=== PATIENT | male | born 1965 | race Caucasian/White ===

== ENCOUNTER 2019-10-17 09:26 | Inpatient (IN) | payer BC, SELFPAY ==
[2019-10-17] VITALS (26 sets, daily range): BP systolic 95–132; BP diastolic 60–86; PULSE 83–99; RESP 21–51; TEMP 36.6–38.8; O2SAT 84–93; BMI 35.9
--- NOTE | 2019-10-17 09:31 | W.ED.URI ---
HPI - URI/Sore Throat General: Chief Complaint: Shortness of Breath/Dyspnea Stated Complaint: COVID + Time Seen by Provider: 10/17/19 09:29 History of Present Illness: HPI Narrative: 54-year-old male presents complaining of shortness of breath. He was seen last week at a local urgent care clinic had a positive antibody COVID test. Yesterday began to get more short of breath and was profoundly short of breath this morning. He has had diarrhea for about a week and a half now. He is also complaining of a fever moderately productive cough. He denies any hemoptysis. Associated symptoms: Deny abdominal pain, chills, chest pain, diarrhea, ear or mastoid pain, fever(s), nasal congestion, nausea or vomiting Review of Systems Const: Denies: fever(s), chills, body aches, change in appetite, fatigue or malaise ENMT: Denies: throat pain, ear or mastoid pain, nasal discharge or nasal congestion Card: Denies: chest pain, edema, dyspnea on exertion or orthopnea Resp: Reports: dyspnea, productive cough and non-productive cough GI: Denies: abdominal pain, nausea, vomiting, hematemesis, coffee ground emesis, diarrhea, constipation, bloating, hematochezia or melena : Denies: flank pain, dysuria, urinary frequency or urinary urgency Skin/Breast: Denies: rash or pruritus PFSH ED PFSH: Medical History Former smoker IBS (irritable bowel syndrome) Varicose vein of leg Surgical History History of appendectomy Family History Denies family history of Diabetes CAD (coronary artery disease) Hyperlipidemia Chronic kidney disease (CKD) Family history of premature coronary artery disease Lung disease Hypertension Social History Smoking and tobacco status: former smoker Alcohol intake: never Household members: family Housing: House Physical Exam Const: COMMON NORMALS: no acute distress GENERAL APPEARANCE: cooperative and comfortable ORIENTATION/CONSCIOUSNESS: Yes awake, Yes oriented to person, Yes oriented to place and Yes oriented to time HENMT: COMMON NORMALS: normocephalic, atraumatic, hearing grossly normal bilaterally, external ears normal, EAC's normal, TM's normal bilaterally, Normal nasal mucous membranes and turbinates present, moist oral mucous membranes and oropharynx normal HEAD & SCALP: normocephalic and atraumatic NOSE: Normal nasal mucous membranes and turbinates present EXTERNAL EAR: Yes external ears normal EXTERNAL AUDITORY CANAL: EAC's normal TYMPANIC MEMBRANE: TM's normal bilaterally Eye: COMMON NORMALS: Equal, round and reactive pupils present, EOMs intact bilaterally, conjunctivae normal and no scleral icterus CONJUNCTIVA: Yes conjunctivae normal PUPIL: Yes Equal, round and reactive pupils present Neck/C-Spine: COMMON NORMALS: full ROM, no lymphadenopathy, supple and no JVD Lymph: LYMPHATIC: no lymphadenopathy noted and no lymphedema noted Resp: EFFORT & INSPECTION: Yes uses accessory muscles AUSCULTATION: rhonchi throughout and wheezes scattered wheezes Cardio: COMMON NORMALS: no JVD, regular rate, regular rhythm and No murmurs present (Cardio) RATE: regular rate RHYTHM: regular rhythm GI: COMMON NORMALS: Soft to palpation and No hepatosplenomegaly present AUSCULTATION: Yes normoactive bowel sounds PALPATION: Yes Soft to palpation, No Tenderness to palpation present (GI), No Guarding due to palpation present (GI) and Yes No hepatosplenomegaly present Extremity: COMMON NORMALS: normal to inspection, capillary refill normal, no clubbing, cyanosis or edema, no calf tenderness and no pedal edema Neuro: SENSORIUM/ORIENTATION: Yes oriented to person, Yes oriented to place and Yes oriented to time Skin: COMMON NORMALS: no rashes or lesions noted GENERAL SKIN EXAM: no rashes or lesions noted Course Vital Signs: Vital signs: Vital Signs Temperature 98.4 F 10/18/19 19:29 Pulse Rate 80 10/18/19 19:29 Respiratory Rate 20 H 10/18/19 19:29 Blood Pressure 134/84 10/18/19 19:29 Pulse Oximetry 92 10/18/19 19:29 MDM - URI/Sore Throat MDM Narrative: Medical decision making narrative: Patient acutely Ill. Initially we had made plans to transfer to [facility] however a bed became available at our facility patient preferred to stay here we canceled the transfer and discussed Dr. Deshpande and will admit to our VICU. Lab Data: Labs: Lab Results 10/17/19 10/17/19 10/17/19 Range/Units 09:55 09:55 09:55 WBC 14.9 H (4.0-10.0) 10^3/ uL RBC 4.58 (4.1-5.3) 10^6/u L Hgb 13.9 (11.7-16.6) g/dL Hct 41.5 L (42.0-52.0) % MCV 90.6 (80-94) fL MCH 30.3 (28.0-34.0) pg MCHC 33.5 (30.0-36.0) g/dL RDW 13.2 (12.1-15.1) % Plt Count 376 (130-400) 10^3/c mm MPV 9.3 (7.4-10.4) fL Neut % (Auto) 86.3 % Lymph % (Auto) 8.9 % Preble % (Auto) 3.4 % Eos % (Auto) 0.1 % Baso % (Auto) 0.2 % Neut # (Auto) 12.87 H (1.8-7.7) 10^3/u L Lymph # (Auto) 1.3 (0.8-4.8) 10^3/u L Preble # (Auto) 0.5 (0.2-0.9) 10^3/u L Eos # (Auto) 0.0 (0.0-0.8) 10^3/u L Baso # (Auto) 0.0 (0.0-0.1) 10^3/u L Nucleated RBC % (a uto) 0 % Nucleated RBCs # 0.0 /100WBC PT 14.20 (12.1-14.9) SECO NDS INR 1.06 (0.8-1.2) APTT 28.0 (23.9-36.7) SECO NDS Fibrinogen 869 H (174-498) mg/dL D-Dimer 1.47 H (0-0.59) ug/mIFE U Specimen Type Sample Site ABG pH (7.35-7.45) ABG pCO2 (35-45) mmHg ABG pO2 (80.0-100.0) mmH g ABG HCO3 (22-26) mmol/L ABG Base Excess (-2.0-2.0) mmol/ L Manolo Test Hematocrit (42-52) % O2 Delivery Device O2 Liters/Min % FiO2 % Chief Inspector ID Sodium 138 (136-145) mmol/L Potassium 4.3 (3.5-5.1) mmol/L Chloride 101 (98-107) mmol/L Carbon Dioxide 26 (22-29) mmol/L Anion Gap 15.3 (5-19) BUN 14 (6-20) mg/dL Creatinine 1.2 (0.7-1.2) mg/dL GFR Calculation 63.3 L (90-130) mL/min Glucose 116 H (65-115) mg/dL Calculated Osmolal ity 283 L (285-295) mOsm/k g Lactic Acid (0.5-2.2) mmol/L Calcium 8.6 (8.5-10.5) mg/dL Iron (59-158) ug/dL TIBC mcg/dl % Saturation (20-50) % Unsat Iron Binding (112-347) ug/dL Ferritin 1737 H (30-400) ng/mL Total Bilirubin 0.6 (0.15-1.2) mg/dL AST 52 H (0-40) U/L ALT 50 H (0-41) U/L Alkaline Phosphata se 78 (40-130) IU/L Lactate Dehydrogen ase 550 H (135-225) U/L Creatine Kinase (39-308) U/L C-Reactive Protein 137.8 H (0.0-4.9) mg/L NT-Pro-B Natriuret Pep (0-125) pg/mL Total Protein 6.2 L (6.6-8.7) g/dL Albumin 3.4 L (3.5-5.2) g/dL Globulin 2.8 (1.3-4.6) g/dL Procalcitonin 0.18 (0-0.5) ng/mL TSH (0.27-4.20) uIU/ mL Influenza Type A A g (Negative) Influenza Type B A g (Negative) SARS-CoV-2 Ag (Rap id) (Negative) 10/17/19 10/17/19 10/17/19 Range/Units 09:55 09:55 09:55 WBC (4.0-10.0) 10^3/ uL RBC (4.1-5.3) 10^6/u L Hgb (11.7-16.6) g/dL Hct (42.0-52.0) % MCV (80-94) fL MCH (28.0-34.0) pg MCHC (30.0-36.0) g/dL RDW (12.1-15.1) % Plt Count (130-400) 10^3/c mm MPV (7.4-10.4) fL Neut % (Auto) % Lymph % (Auto) % Preble % (Auto) % Eos % (Auto) % Baso % (Auto) % Neut # (Auto) (1.8-7.7) 10^3/u L Lymph # (Auto) (0.8-4.8) 10^3/u L Preble # (Auto) (0.2-0.9) 10^3/u L Eos # (Auto) (0.0-0.8) 10^3/u L Baso # (Auto) (0.0-0.1) 10^3/u L Nucleated RBC % (a uto) % Nucleated RBCs # /100WBC PT (12.1-14.9) SECO NDS INR (0.8-1.2) APTT (23.9-36.7) SECO NDS Fibrinogen (174-498) mg/dL D-Dimer (0-0.59) ug/mIFE U Specimen Type Sample Site ABG pH (7.35-7.45) ABG pCO2 (35-45) mmHg ABG pO2 (80.0-100.0) mmH g ABG HCO3 (22-26) mmol/L ABG Base Excess (-2.0-2.0) mmol/ L Manolo Test Hematocrit (42-52) % O2 Delivery Device O2 Liters/Min % FiO2 % Chief Inspector ID Sodium (136-145) mmol/L Potassium (3.5-5.1) mmol/L Chloride (98-107) mmol/L Carbon Dioxide (22-29) mmol/L Anion Gap (5-19) BUN (6-20) mg/dL Creatinine (0.7-1.2) mg/dL GFR Calculation (90-130) mL/min Glucose (65-115) mg/dL Calculated Osmolal ity (285-295) mOsm/k g Lactic Acid 1.4 (0.5-2.2) mmol/L Calcium (8.5-10.5) mg/dL Iron 20 L (59-158) ug/dL TIBC 178 mcg/dl % Saturation 11.2 L (20-50) % Unsat Iron Binding 158 (112-347) ug/dL Ferritin (30-400) ng/mL Total Bilirubin (0.15-1.2) mg/dL AST (0-40) U/L ALT (0-41) U/L Alkaline Phosphata se (40-130) IU/L Lactate Dehydrogen ase (135-225) U/L Creatine Kinase 327 H* Cancelled (39-308) U/L C-Reactive Protein (0.0-4.9) mg/L NT-Pro-B Natriuret Pep 123 (0-125) pg/mL Total Protein (6.6-8.7) g/dL Albumin (3.5-5.2) g/dL Globulin (1.3-4.6) g/dL Procalcitonin 0.18 (0-0.5) ng/mL TSH 0.89 Cancelled (0.27-4.20) uIU/ mL Influenza Type A A g (Negative) Influenza Type B A g (Negative) SARS-CoV-2 Ag (Rap id) (Negative) 10/17/19 10/17/19 10/17/19 Range/Units 10:17 10:54 10:54 WBC (4.0-10.0) 10^3/ uL RBC (4.1-5.3) 10^6/u L Hgb (11.7-16.6) g/dL Hct (42.0-52.0) % MCV (80-94) fL MCH (28.0-34.0) pg MCHC (30.0-36.0) g/dL RDW (12.1-15.1) % Plt Count (130-400) 10^3/c mm MPV (7.4-10.4) fL Neut % (Auto) % Lymph % (Auto) % Preble % (Auto) % Eos % (Auto) % Baso % (Auto) % Neut # (Auto) (1.8-7.7) 10^3/u L Lymph # (Auto) (0.8-4.8) 10^3/u L Preble # (Auto) (0.2-0.9) 10^3/u L Eos # (Auto) (0.0-0.8) 10^3/u L Baso # (Auto) (0.0-0.1) 10^3/u L Nucleated RBC % (a uto) % Nucleated RBCs # /100WBC PT (12.1-14.9) SECO NDS INR (0.8-1.2) APTT (23.9-36.7) SECO NDS Fibrinogen (174-498) mg/dL D-Dimer (0-0.59) ug/mIFE U Specimen Type Not specified Sample Site Radial, right ABG pH 7.48 H (7.35-7.45) ABG pCO2 31.5 L (35-45) mmHg ABG pO2 64.7 L (80.0-100.0) mmH g ABG HCO3 23.6 (22-26) mmol/L ABG Base Excess 1.1 (-2.0-2.0) mmol/ L Manolo Test Pos Hematocrit 51.0 (42-52) % O2 Delivery Device Nc O2 Liters/Min 8.0 % FiO2 56.0 % Chief Inspector ID glc Sodium (136-145) mmol/L Potassium (3.5-5.1) mmol/L Chloride (98-107) mmol/L Carbon Dioxide (22-29) mmol/L Anion Gap (5-19) BUN (6-20) mg/dL Creatinine (0.7-1.2) mg/dL GFR Calculation (90-130) mL/min Glucose (65-115) mg/dL Calculated Osmolal ity (285-295) mOsm/k g Lactic Acid (0.5-2.2) mmol/L Calcium (8.5-10.5) mg/dL Iron (59-158) ug/dL TIBC mcg/dl % Saturation (20-50) % Unsat Iron Binding (112-347) ug/dL Ferritin (30-400) ng/mL Total Bilirubin (0.15-1.2) mg/dL AST (0-40) U/L ALT (0-41) U/L Alkaline Phosphata se (40-130) IU/L Lactate Dehydrogen ase (135-225) U/L Creatine Kinase (39-308) U/L C-Reactive Protein (0.0-4.9) mg/L NT-Pro-B Natriuret Pep (0-125) pg/mL Total Protein (6.6-8.7) g/dL Albumin (3.5-5.2) g/dL Globulin (1.3-4.6) g/dL Procalcitonin (0-0.5) ng/mL TSH (0.27-4.20) uIU/ mL Influenza Type A A g Negative (Negative) Influenza Type B A g Negative (Negative) SARS-CoV-2 Ag (Rap id) Positive H (Negative) Discharge Plan Discharge Patient Disposition: Admitted As Inpatient Admit Provider: Devendra Brownlee Clinical Impression: Pneumonia due to COVID-19 virus Condition: Fair Interventions: ED Discharge Assessment Last Done: 10/17/19 18:03 ED Charges Last Done: 10/17/19 18:03 Discharge Date/Time: 10/17/19 18:04 Coding Level of Care Code ED Supervisor Record Press for Tonya Carias
--- NOTE | 2019-10-17 09:58 | XRR_ITS ---
PROCEDURE INFORMATION: Exam: XR Chest, 1 View Exam date and time: 10/17/2019 10:13 AM Age: 54 years old Clinical indication: Patient HX: Dyspnea/hypoxia. Covid + TECHNIQUE: Imaging protocol: XR of the chest Views: 1 view. COMPARISON: CR Chest 2 views* [id number] 12/27/2017 4:42 PM FINDINGS: Lungs: Interstitial prominence, subcentimeter nodules, and mild airspace disease. Pleural space: No pleural effusion. Heart/Mediastinum: No cardiomegaly. Bones/joints: Scoliosis and degenerative change. XR/XR chest 1V portable [id number] IMPRESSION: Interstitial prominence, subcentimeter nodules, and mild airspace disease.
[2019-10-17 10:10] LABS: Basophils % 0.2 %; Eosinophils % 0.1 %; Hematocrit 41.5 % (42.0-52.0); Hemoglobin 13.9 g/dL (11.7-16.6); Lymphocytes # 1.3 10^3/uL (0.8-4.8); Lymphocytes % 8.9 %; Mean Corpuscular HGB Conc 33.5 g/dL (30.0-36.0); Mean Corpuscular Hemoglobin 30.3 pg (28.0-34.0); Mean Corpuscular Volume 90.6 fL (80-94); Mean Platelet Volume 9.3 fL (7.4-10.4); Monocytes # 0.5 10^3/uL (0.2-0.9); Monocytes % 3.4 %; Neutrophils # 12.87 10^3/uL (1.8-7.7); Neutrophils % 86.3 %; Nucleated Red Blood Cells % 0 %; Platelet Count 376 10^3/cmm (130-400); Red Blood Count 4.58 10^6/uL (4.1-5.3); Red Cell Distribution Width 13.2 % (12.1-15.1); White Blood Count 14.9 10^3/uL (4.0-10.0)
[2019-10-17 10:26] LABS: Alanine Aminotransferase 50 U/L (0-41); Albumin Level 3.4 g/dL (3.5-5.2); Alkaline Phosphatase 78 IU/L (40-130); Anion Gap 15.3 (5-19); Aspartate Amino Transferase 52 U/L (0-40); Blood Urea Nitrogen 14 mg/dL (6-20); Calcium 8.6 mg/dL (8.5-10.5); Carbon Dioxide 26 mmol/L (22-29); Chloride 101 mmol/L (98-107); Globulin 2.8 g/dL (1.3-4.6); Glomerular Filtration Rate 63.3 mL/min (90-130); Glucose 116 mg/dL (65-115); Lactate Dehydrogenase 550 U/L (135-225); Osmolality Calculated 283 mOsm/kg (285-295); Potassium 4.3 mmol/L (3.5-5.1); Sodium 138 mmol/L (136-145); Total Bilirubin 0.6 mg/dL (0.15-1.2); Total Protein 6.2 g/dL (6.6-8.7)
[2019-10-17 10:27] LABS: INR 1.06 (0.8-1.2); Lactic Sepsis W/Reflex 1.4 mmol/L (0.5-2.2)
[2019-10-17 10:28] LABS: Fibrinogen 869 mg/dL (174-498)
[2019-10-17 10:29] LABS: ABG PCO2 31.5 mmHg (35-45); ABG PH Result 7.48 (7.35-7.45); Base Excess ABG 1.1 mmol/L (-2.0-2.0); Blood Gas Allen Test Pos; Blood Gas Operator Identificat glc; Blood Gas Sample Site Radial, right; HCO3 ABG 23.6 mmol/L (22-26); Oxygen Device NC; PO2 ABG 64.7 mmHg (80.0-100.0)
[2019-10-17 10:31] LABS: D Dimer 1.47 ug/mIFEU (0-0.59)
--- NOTE | 2019-10-17 10:55 | PC.NURSE ---
report received from ct [facility] care.
[2019-10-17] MEDS: dexamethasone 4 mg/mL INJ 6 MG IVP (11:00)
[2019-10-17] MEDS: enoxaparin 120 mg/0.8 mL Syringe 110 MG SUBCUT (11:01)
[2019-10-17 11:24] LABS: Influenza A by IFA Negative (Negative); Influenza B by IFA Negative (Negative); SARS Covid-2 Antigen Positive (Negative)
[2019-10-17 11:36] LABS: Procalcitonin 0.18 ng/mL (0-0.5)
[2019-10-17 11:45] LABS: Blood Gas Sample Type Not specified
[2019-10-17 11:47] LABS: C Reactive Protein 137.8 mg/L (0.0-4.9)
[2019-10-17 12:01] LABS: Ferritin 1737 ng/mL (30-400)
--- NOTE | 2019-10-17 13:00 | PC.NURSE ---
informed dr. chaparro of o2 sat of 88% on 6L via nc and rr at 34rr/min verbalized understanding no further orders.
[2019-10-17] MEDS: ondansetron 2 mg/ML SDV 2 mL 4 MG IVP (14:25)
--- NOTE | 2019-10-17 15:21 | PM.HP ---
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 At that time he went to his primary care physician who gave him treatment for upper respiratory infection. Later in the week he developed mild hematuria for which he went to local urgent care who started him treatment with cephalexin for UTI and tested him for COVID-19. Patient's COVID-19 results came back positive on Tuesday, October 08. Today October 16 patient started feeling worse when he got up today morning. He was having difficulty in breathing and was not able to catch his breath. Decided to come to the ER. He has been having cough with mild expectoration but all the symptoms have been getting worse. He has been having 2 days of occasional diarrhea along with nausea but no vomiting. Bowel movements are usually next, not foul-smelling or bloodstained. Patient states he thinks he had the exposure to COVID-19 at the [employer] where 3 other people were tested positive earlier in the week. The ER his blood work showed a white count of 14.9, hemoglobin 13.9, fibrinogen of 869, d-dimer 1.47, ABGs with a PCO2 of 31.5, PO2 of 64.7, BMP within normal limits with ferritin of 1737, LDH of 550, CRP of 137. X-ray was done which is suggestive of bilateral interstitial prominence with mild airspace disease. In the ER patient was saturating 84% on room air and required up to 6 L nasal cannula to keep saturation over 91 with a fever of 101.9 Fahrenheit. Review of Systems General: Reports: 10 or more systems reviewed and unremarkable except in HPI and below Const: Reports: fever(s), chills, body aches and malaise; Denies: change in appetite, change in weight, night sweats, diaphoresis, change in sleep pattern, daytime sleepiness or snoring Eyes: Denies: change in vision, blurry vision, photophobia, eye discomfort or eye discharge ENMT: Reports: throat pain; Denies: enlarged tonsils, hoarseness, mouth pain, oral sores, dry mouth, tinnitus, nasal congestion or post nasal drip Card: Denies: chest pain, palpitations, irregular heart rhythm, edema, swelling of feet/ankles, lightheadedness, syncope, pre-syncope, dyspnea on exertion, orthopnea, leg pain with exertion or acrocyanosis Resp: Reports: dyspnea and productive cough; Denies: non-productive cough, wheezing, stridor, pain on inspiration, change in phlegm color, hemoptysis or chest congestion GI: Reports: nausea and diarrhea; Denies: abdominal pain, vomiting, hematemesis, coffee ground emesis, dysphagia, heartburn, constipation, bloating, GI cramping, change in bowel habits, pain on defecation, hematochezia or melena : Reports: urinary urgency and hematuria; Denies: flank pain, difficulty urinating, dysuria, urinary frequency, urinary hesitancy, urinary dribbling, difficulty starting urination, change in urine stream or nocturia Musc: Denies: neck pain, back pain, extremity pain, joint pain, joint swelling, joint redness, joint stiffness or limited range of motion Neuro: Reports: headache(s); Denies: numbness in extremities, weakness in extremities, sensory changes, lack of coordination, difficulty walking, frequent falls, dizziness, vertigo, confusion, Slurred speech present, difficulty communicating thoughts or seizure-like activity Psych: Denies: anxiety, depression, mood swings, panic attacks, hopelessness or irritability Endo: Denies: polyuria, polydipsia, tired all the time, cold intolerance, excessive sweating, flushing or heat intolerance Grey/Lymph: Denies: easy bruising or easy bleeding All/Imm: Denies: tongue swelling, facial swelling or acute wheezing Medications/Allergies Home Medications Medication Instructions Recorded Confirmed Last Taken Type Fish Oil 1 cap PO DAILY 10/17/19 10/17/19 Unknown History albuterol sulfate [Ventolin HFA] 2 puff INHALATION QID PRN 10/17/19 10/17/19 Unknown History calcium carb-D3-mag ox-zinc ox 1 tab PO TID 10/17/19 10/17/19 Unknown History [Maximino Mag Zinc Plus D3] cefdinir 300 mg PO BID 10/17/19 10/17/19 10/16/19 23:00 History cephalexin 500 mg PO QID 10/17/19 10/17/19 Unknown History mcqybgyohhu-fyo-tgcjjnthk-vitC 1 cap PO BID 10/17/19 10/17/19 Unknown History [Glucosamine Complex-MSM] ibuprofen 600 mg PO PRN 10/17/19 10/17/19 10/17/19 08:15 History promethazine 25 mg PO QID PRN 10/17/19 10/17/19 10/16/19 History Allergies Allergy/AdvReac Type Severity Reaction Status Date / Time aluminum Allergy Mild rash Verified 10/17/19 15:34 PFSH Acute PFSH: Medical History (Updated 10/17/19 @ 15:36 by Devendra Brownlee MD) Former smoker IBS (irritable bowel syndrome) Varicose vein of leg Surgical History (Updated 10/17/19 @ 15:36 by Devendra Brownlee MD) History of appendectomy Family History (Updated 10/17/19 @ 15:41 by Devendra Brownlee MD) Denies family history of Diabetes CAD (coronary artery disease) Hyperlipidemia Chronic kidney disease (CKD) Family history of premature coronary artery disease Lung disease Hypertension Social History (Updated 10/17/19 @ 15:40 by Devendra Brownlee MD) Smoking and tobacco status: former smoker Alcohol intake: never Substance/Drug Use: never Household members: family Housing: House Vitals/I&O/Wt Last Vital Signs Temp 101.9 F H 10/17/19 09:50 Pulse 92 10/17/19 15:00 Resp 28 H 10/17/19 15:00 BP 117/79 10/17/19 15:00 Pulse Ox 91 10/17/19 15:00 Weight last 48 hrs Weight 113.398 kg Physical Exam Narrative: EXAM NARRATIVE: General: No acute distress, AO x3 HEENT: PERRLA, pupils bilaterally equal and reactive Chest: Normal vesicular breath sounds, no added sounds, equal good air entry bilaterally CVS: S1-S2 regular, no murmurs, no tachycardia, no gallops, no rubs Abdomen: Soft, nontender, no organomegaly, bowel sounds present Neuro: No focal deficits, no facial deformity, AO x3, power 5/5 in all limbs Data : 10/17/19 09:55 10/17/19 09:55 Micro: Microbiology 10/17/19 11:03 Gram Stain - Final Sputum - Expectorated Sputum 10/17/19 10:00 Blood Culture - Preliminary Blood SPECIMEN COLLECTED 10/17/19 09:55 Blood Culture - Preliminary Blood SPECIMEN COLLECTED A&P Assessment and plan (1) Pneumonia due to COVID-19 virus: Status: Acute (2) Acute respiratory failure with hypoxia: Status: Acute (3) UTI (urinary tract infection): Status: Acute Additional A&P Information Acute hypoxic respiratory failure due to covered pneumonia: At least moderate to severe COVID-19 as patient is requiring 6 L oxygen supplementation. Oxygen supplementation to keep oxygen levels above 90%. Antiviral treatment with Remdesevir for 5 days. Dexamethasone 6 mg IV daily. Advair, Spiriva. Vitamin C and zinc. We will continue to monitor inflammatory markers like ferritin, LDH, CRP, d-dimer, fibrinogen levels. Cannot rule out bacterial infection. Check pro procalcitonin, proBNP, sputum culture, blood culture. For now start patient on levofloxacin. Check CTA to rule out PE. D-dimer elevated. For now start patient on full dose Lovenox. Tylenol for pain and fever, incentive spirometry, flutter valve. Insulin sliding scale as patient will be on dexamethasone. Nystatin swish and swallow. UTI: Some concerns for UTI at urgent care when patient was seen earlier in the week. Patient has been on oral antibiotics. Check urinalysis. For now levofloxacin will help with UTI as well. Patient does not give any history of resistant bacteria in the past. Diarrhea: Most likely viral in etiology. Patient has been antibiotics so we will have to rule out C. difficile. Check stool studies. IV fluids and normal saline at 75 cc/h for now. CODE STATUS: Full code. Famotidine for PUD prophylaxis. Regular diet. Discussed in detail regarding the treatment options including antiviral treatment, plasma treatment, possible requirement of intubation if respiratory failure worsens. Both patient and his are agreeable to the treatment. Also discussed regarding potential adverse effects with the treatment. Also discussed that in case if the respiratory failure worsens patient might require intubation and plasma therapy which unfortunately is not available at [facility] and at that point patient might need to be transferred to a higher center. They both agree with the same as well. Attestations Medical Necessity Statement*: At least for 2 midnights because of acute hypoxic respiratory failure because of COVID-19 pneumonia Critical Care Time: Critical Care Time (min): 80 Coding Level of Care Code Acute Battalion Chief for [facility] Fwd Diagnoses Pneumonia due to COVID-19 virus U07.1; J12.89 Acute respiratory failure with hypoxia J96.01 UTI (urinary tract infection) N39.0
--- NOTE | 2019-10-17 15:25 | CTR_ITS ---
PROCEDURE INFORMATION: Exam: CT Angiography Chest With Contrast Exam date and time: 10/17/2019 3:26 PM Age: 54 years old Clinical indication: Shortness of breath; Additional info: Covid, hypoxic faliure, R/O pe TECHNIQUE: Imaging protocol: Computed tomographic angiography of the chest with intravenous contrast. 3D rendering (Not supervised by radiologist): MIP and/or 3D reconstructed images were created by the technologist. Radiation optimization: All CT scans at this facility use at least one of these dose optimization techniques: automated exposure control; mA and/or kV adjustment per patient size (includes targeted exams where dose is matched to clinical indication); or iterative reconstruction. Contrast material: OMNI 350; Contrast volume: 79 ml; Contrast route: INTRAVENOUS (IV); COMPARISON: CR XR chest 1V portable [id number] 10/17/2019 10:22 AM RADIATION DOSE METRICS: Total DLP (mGy-cm): 596.78 FINDINGS: Pulmonary arteries: There are mildly prominent prevascular lymph nodes measuring up to 11 x 18 mm.There is no evidence of filling defects within the pulmonary arterial circulation to suggest pulmonary embolism. Aorta: Unremarkable. No aortic aneurysm. No aortic dissection. Lungs: There are extensive ground-glass pulmonary opacities present on all segments of the lungs but with relative sparing of the right upper lobe and posterior left lower lobe. These are nonspecific but are consistent with the clinical history of COVID-19. There is calcified granuloma in the left lower lobe. Pleural space: Unremarkable. No pneumothorax. No pleural effusion. Heart: Unremarkable. No cardiomegaly. No pericardial effusion. Lymph nodes: There are calcified left hilar lymph nodes in keeping with old granulomatous disease. Bones/joints: There is focal scoliosis of the thoracic spine concave towards the left due to a raad vertebrae on the right side at the T6 level. Soft tissues: Unremarkable. CT/CT angio chest PE protcl [id number] IMPRESSION: 1. No evidence of pulmonary embolism 2. Small bilateral pleural effusions. 3. Extensive bilateral ground-glass opacities.Imaging features can be seen with COVID-19 pneumonia, though are nonspecific and can occur with a variety of infectious and noninfectious processes. REFERENCES: Neil Cat et al., Radiological Society of [place] Expert Consensus Statement on Reporting Chest CT Findings Related to COVID-19. Endorsed by the Society of Thoracic Radiology, the [place] [employer], and RSNA. Published May 09, 2019. Radiation Dose CTDIVOL = (mGy): DLP = 596.78 (mGy-cm)
[2019-10-17 16:21] LABS: NT Pro B Type Natriuretic Pept 123 pg/mL (0-125); Procalcitonin 0.18 ng/mL (0-0.5); Thyroid Stimulating Hormone 0.89 uIU/mL (0.27-4.20)
[2019-10-17 16:39] LABS: Iron 20 ug/dL (59-158); Percent Saturation 11.2 % (20-50); Total Iron Binding Capacity 178 mcg/dl; Unsaturated Iron Binding 158 ug/dL (112-347)
[2019-10-17 16:41] LABS: Creatine Phosphokinase 327 U/L (39-308)
[2019-10-17] MEDS: iohexol 350 mg/mL 100 mL Btl IV (16:49)
[2019-10-17] MEDS: famotidine 20 mg/2 mL INJ IVP (17:17)
[2019-10-17] MEDS: levoFLOXacin 500 mg Tablet PO (17:17)
[2019-10-17] MEDS: sodium chloride 0.9% 1,000 ML 50 ML IV (18:27)
[2019-10-17] MEDS: enoxaparin 120 mg/0.8 mL Syringe 113 MG SUBCUT (18:28)
[2019-10-17] MEDS: ascorbic acid 500 mg Tablet PO (18:28)
[2019-10-17] MEDS: zinc gluconate 50 mg Tablet PO (18:29)
[2019-10-17 19:57] LABS: Glucose Point of Care 171 mg/dL (70-110)
[2019-10-17 19:57] LABS: Glucose Point of Care 129 mg/dL (70-110)
[2019-10-17] MEDS: benzonatate 100 mg Capsule PO (21:01)
[2019-10-18] VITALS (39 sets, daily range): BP systolic 106–149; BP diastolic 49–92; PULSE 75–107; RESP 11–47; TEMP 36.6–37.2; O2SAT 88–95
[2019-10-18 00:30] LABS: Bilirubin Urine Neg (NEGATIVE); Blood Urine 2+ (Negative); Glucose Urine UA Norm (Normal); Ketones Urine Negative (Negative); Leukocyte Esterase Urine Negative (Negative); Mucus Urine TRACE; Nitrate Urine Negative (Negative); Protein Urine Neg (Negative); Specific Gravity, Urine 1.015 (1.005-1.030); Urine Appearance Clear (CLEAR); Urine Color Yellow (Yellow); Urobilinogen Urine Norm (Negative); pH Urine 5 (5-7)
[2019-10-18] MEDS: ipratropium-albuterol 3 mL Neb INHALATION ×3 (01:00→14:40)
--- NOTE | 2019-10-18 01:07 | PC.NURSE ---
Patient up to bathroom while on oxygen, increased O2 to 15L/min. Patient remained in mid-80% while tachypneic. Requested heated high flow nasal cannula from RT, notified Dr. Mcdonough of events. Dr. Mcdonough advised to prone patient, if possible. Patient willing to lay on side but not to prone at this time. HHFNC applied by RT, 60% FIO2, 50L/min. Patient states he feels better, O2 sats increased.
[2019-10-18] MEDS: famotidine 20 mg/2 mL INJ IVP ×2 (04:29→15:08)
--- NOTE | 2019-10-18 06:00 | XR_ITS ---
WS: [id number] Portable AP upright chest, 10/18/2019 Clinical Data: covid Comparison: Portable chest, 10/17/2019 Findings: Bilateral opacities remain unchanged. No nodules, masses or effusions are seen. The heart i s normal. No pneumothorax is present. There is a dextroscoliosis of the midthoracic spine. Monitor le ads are on the chest wall. XR/XR chest 1V portable [id number] Impression: No change in bilateral pulmonary opacities.
[2019-10-18] MEDS: enoxaparin 120 mg/0.8 mL Syringe 113 MG SUBCUT ×2 (06:12→18:04)
[2019-10-18] MEDS: levoFLOXacin 500 mg Tablet PO (06:14)
[2019-10-18 07:04] LABS: Basophils % 0.1 %; Hematocrit 39.5 % (42.0-52.0); Lymphocytes # 1.4 10^3/uL (0.8-4.8); Lymphocytes % 10.3 %; Mean Corpuscular HGB Conc 32.9 g/dL (30.0-36.0); Mean Corpuscular Hemoglobin 30.2 pg (28.0-34.0); Mean Corpuscular Volume 91.9 fL (80-94); Mean Platelet Volume 9.9 fL (7.4-10.4); Monocytes # 0.7 10^3/uL (0.2-0.9); Monocytes % 5.2 %; Neutrophils # 11.14 10^3/uL (1.8-7.7); Neutrophils % 82.7 %; Nucleated Red Blood Cells % 0.1 %; Platelet Count 445 10^3/cmm (130-400); Red Cell Distribution Width 13.3 % (12.1-15.1); White Blood Count 13.5 10^3/uL (4.0-10.0)
[2019-10-18 07:12] LABS: Alanine Aminotransferase 106 U/L (0-41); Albumin Level 3.3 g/dL (3.5-5.2); Alkaline Phosphatase 72 IU/L (40-130); Anion Gap 16.1 (5-19); Aspartate Amino Transferase 84 U/L (0-40); Blood Urea Nitrogen 19 mg/dL (6-20); C Reactive Protein 123.8 mg/L (0.0-4.9); Calcium 7.9 mg/dL (8.5-10.5); Carbon Dioxide 24 mmol/L (22-29); Chloride 102 mmol/L (98-107); Creatine Phosphokinase 251 U/L (39-308); Globulin 3.2 g/dL (1.3-4.6); Glomerular Filtration Rate 88.3 mL/min (90-130); Glucose 125 mg/dL (65-115); Magnesium 2.6 mg/dL (1.7-2.3); Osmolality Calculated 284 mOsm/kg (285-295); Potassium 4.1 mmol/L (3.5-5.1); Sodium 138 mmol/L (136-145); Total Bilirubin 0.4 mg/dL (0.15-1.2); Total Protein 6.5 g/dL (6.6-8.7)
[2019-10-18 07:19] LABS: Procalcitonin 0.14 ng/mL (0-0.5)
[2019-10-18 07:26] LABS: Estmated Average Glucose 117; Hemoglobin A1C 5.7 % (4.0-6.0)
[2019-10-18 07:30] LABS: Lactate Dehydrogenase 549 U/L (135-225)
[2019-10-18 07:43] LABS: Ferritin 1848 ng/mL (30-400)
[2019-10-18 07:48] LABS: Fibrinogen 832 mg/dL (174-498)
[2019-10-18 07:51] LABS: D Dimer 0.98 ug/mIFEU (0-0.59)
[2019-10-18] MEDS: ascorbic acid 500 mg Tablet PO ×2 (08:57→18:04)
[2019-10-18] MEDS: dexamethasone 10 mg/mL INJ 6 MG IVP (08:57)
[2019-10-18] MEDS: benzonatate 100 mg Capsule PO ×2 (08:58→15:08)
[2019-10-18] MEDS: zinc gluconate 50 mg Tablet PO (08:58)
[2019-10-18 11:38] LABS: Glucose Point of Care 131 mg/dL (70-110)
[2019-10-18] MEDS: FUROsemide 10 mg/mL SDV 2mL 20 MG IVP (11:59)
--- NOTE | 2019-10-18 13:31 | PM.PN ---
Subjective Subjective: Interval history: Overnight patient states he has been comfortable. He denies of any nausea, vomiting. States his abdominal pain is better. Still complaining of cough. Having mild chest pain on deep cough. Not bringing up as much phlegm as before. On examination patient is on 60% 40 L high flow nasal cannula maintaining saturation over 90% at rest which goes up to 93% while talking. His mean arterial pressures and heart rate has remained stable. He states his energy levels are little better than yesterday. He is having his meals. States his sense of taste and smell are intact. Denies of having any headache. Patient has been getting up and going to the restroom multiple times. He states is normal for him because of his history of IBS. Vitals/I&O/Wt Last Vital Signs Temp 98.0 F 10/18/19 11:53 Pulse 80 10/18/19 11:30 Resp 22 H 10/18/19 11:30 BP 116/68 10/18/19 11:30 Pulse Ox 91 10/18/19 11:30 10/17/19 10/18/19 10/18/19 22:59 06:59 14:59 Intake Total 1050 / 1050 Output Total 300 / 300 275 / 275 Balance -300 / -300 775 / 775 Weight last 48 hrs Weight 113.398 kg Weight 113.398 kg Physical Exam Narrative: EXAM NARRATIVE: General: No acute distress, AO x3 HEENT: PERRLA, pupils bilaterally equal and reactive Chest: Normal vesicular breath sounds, no added sounds, equal good air entry bilaterally CVS: S1-S2 regular, no murmurs, no tachycardia, no gallops, no rubs Abdomen: Soft, nontender, no organomegaly, bowel sounds present Neuro: No focal deficits, no facial deformity, AO x3, power 5/5 in all limbs Data : 10/18/19 05:00 10/18/19 05:00 Micro: Microbiology 10/17/19 11:03 Gram Stain - Final Sputum - Expectorated Sputum Sputum Culture - Preliminary 10/17/19 18:46 MRSA Culture - Final Nose 10/17/19 10:00 Blood Culture - Preliminary Blood NEGATIVE TO DATE 10/17/19 09:55 Blood Culture - Preliminary Blood NEGATIVE TO DATE 10/17/19 23:25 Legionella Urinary Antigen - Final Urine,Clean Catch A&P Assessment and plan (1) ARDS (adult respiratory distress syndrome): Status: Acute (2) Pneumonia due to COVID-19 virus: Status: Acute (3) Acute respiratory failure with hypoxia: Status: Acute (4) IBS (irritable bowel syndrome): Status: Acute Additional A&P Information ARDS/acute hypoxic respiratory failure due to covered pneumonia: At least moderate to severe COVID-19. Patient's oxygen requirements have been going up. At present he is on high flow. CT images and chest x-ray done today morning reviewed. Patient is in ARDS. We will try to keep patient as negative as possible. Stop IV fluids and will give patient 20 mg of IV Lasix as patient is Lasix na?ve. Strict input output charting. Antiviral treatment with Remdesevir. Day 2/ today. Dexamethasone 6 mg IV daily. Advair, Spiriva. DuoNeb's as needed. Vitamin C and zinc. We will continue to monitor inflammatory markers like ferritin, LDH, CRP, d-dimer, fibrinogen levels. Cannot rule out bacterial infection. Legionella, MRSA negative. Sputum culture results awaited. Continue with levofloxacin. Day 2. Even the CTA PE negative for thrombosis but given the fact that patient's oxygen requirement has been going up and hemoglobin is stable we will continue with full dose of Lovenox. Most likely patient will require 2 weeks of anticoagulation on discharge. Tylenol for pain and fever, incentive spirometry, flutter valve. Insulin sliding scale as patient will be on dexamethasone. Nystatin swish and swallow. UTI: Symptoms as an outpatient. Urinalysis negative for leuk esterase or nitrite. Only positive for 2+ blood. Patient does not give history of kidney stones in the past. Most likely patient would require abdominal imaging to rule out nephrolithiasis as an outpatient. Diarrhea: Most likely because of chronic history of IBS versus viral in etiology. Patient has been antibiotics so we will have to rule out C. difficile. Check stool studies. CODE STATUS: Full code. Famotidine for PUD prophylaxis. Regular diet. Discussed in detail regarding the treatment options including antiviral treatment, plasma treatment, possible requirement of intubation if respiratory failure worsens. Both patient and his are agreeable to the treatment. Also discussed regarding potential adverse effects with the treatment. Also discussed that in case if the respiratory failure worsens patient might require intubation and plasma therapy which unfortunately is not available at [facility] and at that point patient might need to be transferred to a higher center. They both agree with the same as well. Severely guarded prognosis Attestations Medical Necessity Statement*: ARDS, COVID-19 pneumonia Critical Care Time: Critical Care Time (min): 80 Coding Level of Care Code Acute Vocational Rehabilitation Counselor for g Fwd Diagnoses ARDS (adult respiratory distress syndrome) J80 Pneumonia due to COVID-19 virus U07.1; J12.89 Acute respiratory failure with hypoxia J96.01 IBS (irritable bowel syndrome) K58.9
--- NOTE | 2019-10-18 16:27 | PM.TDS ---
Transfer Summary Providers Date of Admission: 10/17/19 15:42 Date of Discharge: 10/18/19 Attending Provider at Admission: Devendra Brownlee MD Attending Provider at Transfer: Devendra Brownlee MD Anticipated Date of Transfer: Anticipated date of transfer: 10/18/19 Receiving Facility & Provider: Receiving Provider: [Dr. 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 At that time he went to his primary care physician who gave him treatment for upper respiratory infection. Later in the week he developed mild hematuria for which he went to local urgent care who started him treatment with cephalexin for UTI and tested him for COVID-19. Patient's COVID-19 results came back positive on Tuesday, October 08. Today October 16 patient started feeling worse when he got up today morning. He was having difficulty in breathing and was not able to catch his breath. Decided to come to the ER. He has been having cough with mild expectoration but all the symptoms have been getting worse. He has been having 2 days of occasional diarrhea along with nausea but no vomiting. Bowel movements are usually next, not foul-smelling or bloodstained. Patient states he thinks he had the exposure to COVID-19 at the [employer]ab[employer]ism where 3 other people were tested positive earlier in the week. The ER his blood work showed a white count of 14.9, hemoglobin 13.9, fibrinogen of 869, d-dimer 1.47, ABGs with a PCO2 of 31.5, PO2 of 64.7, BMP within normal limits with ferritin of 1737, LDH of 550, CRP of 137. X-ray was done which is suggestive of bilateral interstitial prominence with mild airspace disease. In the ER patient was saturating 84% on room air and required up to 6 L nasal cannula to keep saturation over 91 with a fever of 101.9 Fahrenheit. On admission patient was requiring up to 6 L nasal cannula oxygen supplementation to keep saturation over 90%. Overnight patient's oxygen saturation continued to get worse and morning he was requiring 40 L 60% oxygen supplementation to keep saturation over 90% at rest. On ambulation it would go down to high 70s to low 80s. Patient remained hemodynamically stable. Patient has received 2 doses of Remdesevir along with dexamethasone, vitamin C, zinc, Advair and Spiriva. Because patient's oxygen requirements are going up possible transfer to a higher center which has capability of pruning in bed, Flolan, possible plasma therapy, possible ECMO requirement if needed are there. The treatment options were discussed with patient and patient's Ms. Moy in detail. They both agreed for a possible transfer. Dr. Hernandez from [facility] has graciously accepted the patient to be transferred to [facility]. He has been transferred in hemodynamically stable condition. Physical Exam Narrative: EXAM NARRATIVE: General: No acute distress, AO x3 HEENT: PERRLA, pupils bilaterally equal and reactive Chest: Normal vesicular breath sounds, no added sounds, equal good air entry bilaterally CVS: S1-S2 regular, no murmurs, no tachycardia, no gallops, no rubs Abdomen: Soft, nontender, no organomegaly, bowel sounds present Neuro: No focal deficits, no facial deformity, AO x3, power 5/5 in all limbs TS Data Data Completed and Pending: Completed Studies During Hospitalization Category Date Time Status CT angio chest PE protcl [id number] Urge nt Cat Scan 10/17/19 15:25 Completed XR chest 1V garrett ble [id number] QAM Exams 10/18/19 06:00 Completed XR chest 1V garrett ble [id number] Stat Exams 10/17/19 09:58 Completed Pending at discharge Category Date Time Status Blood Culture Sta t Lab 10/17/19 10:00 Results C Reactive Protei n AM LABS Lab 10/19/19 04:00 Ordered C Reactive Protei n AM LABS Lab 10/20/19 04:00 Ordered Clostridioides Di fficile PCR Routin e Lab 10/17/19 15:46 Ordered Complete Blood Co unt w/Auto AM LABS Lab 10/19/19 04:00 Ordered Complete Blood Co unt w/Auto AM LABS Lab 10/20/19 04:00 Ordered Comprehensive Met abolic Panel AM LA BS Lab 10/19/19 04:00 Ordered Comprehensive Met abolic Panel AM LA BS Lab 10/20/19 04:00 Ordered D Dimer AM LABS Lab 10/19/19 04:00 Ordered D Dimer AM LABS Lab 10/20/19 04:00 Ordered Enteric Bacterial Panel by PCR Rout ine Lab 10/17/19 15:46 Ordered Enteric Parasite Panel by PCR Routi ne Lab 10/17/19 15:46 Ordered Ferritin AM LABS Lab 10/19/19 04:00 Ordered Ferritin AM LABS Lab 10/20/19 04:00 Ordered Fibrinogen AM LAB S Lab 10/19/19 04:00 Ordered Fibrinogen AM LAB S Lab 10/20/19 04:00 Ordered Immunochemical Fe geovanna OCB Routine Lab 10/17/19 15:46 Ordered Lactate Dehydroge nase AM LABS Lab 10/19/19 04:00 Ordered Lactate Dehydroge nase AM LABS Lab 10/20/19 04:00 Ordered Lactoferrin Routi ne Lab 10/17/19 15:46 Ordered Magnesium AM LABS Lab 10/19/19 04:00 Ordered Magnesium AM LABS Lab 10/20/19 04:00 Ordered Sputum Culture an d Gram Stain Stat Lab 10/17/19 11:03 Results Labs from last 24 hours 10/18/19 10/18/19 10/18/19 11:35 05:00 05:00 WBC RBC Hgb Hct MCV MCH MCHC RDW Plt Count MPV Neut % (Auto) Lymph % (Auto) [place] % (Auto) Eos % (Auto) Baso % (Auto) Neut # (Auto) Lymph # (Auto) [place] # (Auto) Eos # (Auto) Baso # (Auto) Nucleated RBC % (a uto) Nucleated RBCs # Fibrinogen 832 H D-Dimer 0.98 H Sodium Potassium Chloride Carbon Dioxide Anion Gap BUN Creatinine GFR Calculation Glucose POC Glucose 131 Estimat Average Gl ucose Hemoglobin A1c Calculated Osmolal ity Calcium Magnesium Iron TIBC % Saturation Unsat Iron Binding Ferritin 1848 H Total Bilirubin AST ALT Alkaline Phosphata se Lactate Dehydrogen ase 549 H Creatine Kinase C-Reactive Protein NT-Pro-B Natriuret Pep Total Protein Albumin Globulin Procalcitonin 0.14 TSH Urine Color Urine Appearance Urine pH Ur Specific Gravit y Urine Protein Urine Glucose (UA) Urine Ketones Urine Blood Urine Nitrate Urine Bilirubin Urine Urobilinogen Ur Leukocyte Abena ase Urine RBC Urine WBC Ur Squamous Epith Cells Amorphous Sediment Urine Bacteria Urine Mucus 10/18/19 10/18/19 10/18/19 05:00 05:00 05:00 WBC 13.5 H RBC 4.30 Hgb 13.0 Hct 39.5 L MCV 91.9 MCH 30.2 MCHC 32.9 RDW 13.3 Plt Count 445 H MPV 9.9 Neut % (Auto) 82.7 Lymph % (Auto) 10.3 [place]olls % (Auto) 5.2 Eos % (Auto) 0.0 Baso % (Auto) 0.1 Neut # (Auto) 11.14 H Lymph # (Auto) 1.4 [place]s # (Auto) 0.7 Eos # (Auto) 0.0 Baso # (Auto) 0.0 Nucleated RBC % (a uto) 0.1 Nucleated RBCs # 0.0 Fibrinogen D-Dimer Sodium 138 Potassium 4.1 Chloride 102 Carbon Dioxide 24 Anion Gap 16.1 BUN 19 Creatinine 0.9 GFR Calculation 88.3 L Glucose 125 H POC Glucose Estimat Average Gl ucose 117 Hemoglobin A1c 5.7 Calculated Osmolal ity 284 L Calcium 7.9 L Magnesium 2.6 H Iron TIBC % Saturation Unsat Iron Binding Ferritin Total Bilirubin 0.4 AST 84 H ALT 106 H Alkaline Phosphata se 72 Lactate Dehydrogen ase Creatine Kinase 251 C-Reactive Protein 123.8 H NT-Pro-B Natriuret Pep Total Protein 6.5 L Albumin 3.3 L Globulin 3.2 Procalcitonin TSH Urine Color Urine Appearance Urine pH Ur Specific Gravit y Urine Protein Urine Glucose (UA) Urine Ketones Urine Blood Urine Nitrate Urine Bilirubin Urine Urobilinogen Ur Leukocyte Abena ase Urine RBC Urine WBC Ur Squamous Epith Cells Amorphous Sediment Urine Bacteria Urine Mucus 10/17/19 10/17/19 10/17/19 23:25 19:47 18:38 WBC RBC Hgb Hct MCV MCH MCHC RDW Plt Count MPV Neut % (Auto) Lymph % (Auto) [place] % (Auto) Eos % (Auto) Baso % (Auto) Neut # (Auto) Lymph # (Auto) [place] # (Auto) Eos # (Auto) Baso # (Auto) Nucleated RBC % (a uto) Nucleated RBCs # Fibrinogen D-Dimer Sodium Potassium Chloride Carbon Dioxide Anion Gap BUN Creatinine GFR Calculation Glucose POC Glucose 171 129 Estimat Average Gl ucose Hemoglobin A1c Calculated Osmolal ity Calcium Magnesium Iron TIBC % Saturation Unsat Iron Binding Ferritin Total Bilirubin AST ALT Alkaline Phosphata se Lactate Dehydrogen ase Creatine Kinase C-Reactive Protein NT-Pro-B Natriuret Pep Total Protein Albumin Globulin Procalcitonin TSH Urine Color Yellow Urine Appearance Clear Urine pH 5 Ur Specific Gravit y 1.015 Urine Protein Neg Urine Glucose (UA) Norm Urine Ketones Negative Urine Blood 2+ H Urine Nitrate Negative Urine Bilirubin Neg Urine Urobilinogen Norm Ur Leukocyte Abena ase Negative Urine RBC None Urine WBC None Ur Squamous Epith Cells None Amorphous Sediment Not Reportable Urine Bacteria None Urine Mucus Trace 10/17/19 09:55 WBC RBC Hgb Hct MCV MCH MCHC RDW Plt Count MPV Neut % (Auto) Lymph % (Auto) [place] % (Auto) Eos % (Auto) Baso % (Auto) Neut # (Auto) Lymph # (Auto) [place] # (Auto) Eos # (Auto) Baso # (Auto) Nucleated RBC % (a uto) Nucleated RBCs # Fibrinogen D-Dimer Sodium Potassium Chloride Carbon Dioxide Anion Gap BUN Creatinine GFR Calculation Glucose POC Glucose Estimat Average Gl ucose Hemoglobin A1c Calculated Osmolal ity Calcium Magnesium Iron 20 L TIBC 178 % Saturation 11.2 L Unsat Iron Binding 158 Ferritin Total Bilirubin AST ALT Alkaline Phosphata se Lactate Dehydrogen ase Creatine Kinase 327 H* C-Reactive Protein NT-Pro-B Natriuret Pep 123 Total Protein Albumin Globulin Procalcitonin 0.18 TSH 0.89 Urine Color Urine Appearance Urine pH Ur Specific Gravit y Urine Protein Urine Glucose (UA) Urine Ketones Urine Blood Urine Nitrate Urine Bilirubin Urine Urobilinogen Ur Leukocyte Abena ase Urine RBC Urine WBC Ur Squamous Epith Cells Amorphous Sediment Urine Bacteria Urine Mucus Vitals: Last Vital Signs Temp 98.0 F 10/18/19 11:53 Pulse 88 10/18/19 14:38 Resp 22 H 10/18/19 14:38 BP 116/68 10/18/19 11:30 Pulse Ox 93 10/18/19 14:38 TS Medications Medications Home Medications Fish Oil 1 cap PO DAILY 10/17/19 [History Confirmed 10/17/19] albuterol sulfate [Ventolin HFA] 2 puff INHALATION QID PRN 10/17/19 [History Confirmed 10/17/19] calcium carb-D3-mag ox-zinc ox [Geovanna Mag Zinc Plus D3] 1 tab PO TID 10/17/19 [History Confirmed 10/17/19] cefdinir 300 mg PO BID 10/17/19 [History Confirmed 10/17/19] cephalexin 500 mg PO QID 10/17/19 [History Confirmed 10/17/19] [id number]-rgnldqzka-vitC [Glucosamine Complex-MSM] 1 cap PO BID 10/17/19 [History Confirmed 10/17/19] ibuprofen 600 mg PO PRN 10/17/19 [History Confirmed 10/17/19] promethazine 25 mg PO QID PRN 10/17/19 [History Confirmed 10/17/19] Active Medications Acetaminophen (Tylenol) 650 mg PO Q6H PRN PRN Reason: Mild/Mod Pain Or Temp >/= 101 Albuterol/Ipratropium (Duoneb) 3 ml INHALATION Q4H.RESPIRATORY PRN PRN Reason: SHORTNESS OF BREATH Last Admin: 10/18/19 14:40 Dose: 3 ml Documented by: Ascorbic Acid (Vitamin C) 500 mg PO BID [facility] Last Admin: 10/18/19 08:57 Dose: 500 mg Documented by: Benzonatate (Tessalon Pearls) 100 mg PO TID [facility] Last Admin: 10/18/19 15:08 Dose: 100 mg Documented by: Bisacodyl (Dulcolax) 10 mg PO DAILY PRN PRN Reason: CONSTIPATION Calcium Carbonate (Tums) 1,000 mg PO Q4H PRN PRN Reason: DYSPEPSI Dexamethasone (Decadron) 6 mg IVP DAILY [facility] Last Admin: 10/18/19 08:57 Dose: 6 mg Documented by: Dextrose (D50w) 25 ml IVP ONCE PRN; Protocol PRN Reason: hypoglycemia protocol Dextrose (D50w) 50 ml IVP PRN PRN; Protocol PRN Reason: hypoglycemia protocol Enoxaparin Sodium (Lovenox) 113 mg SUBCUT Q12H [facility] Last Admin: 10/18/19 06:12 Dose: 113 mg Documented by: Famotidine (Pepcid Inj) 20 mg IVP Q12H [facility] Last Admin: 10/18/19 15:08 Dose: 20 mg Documented by: Glucagon (Glucagen) 1 mg IM ONCE PRN; Protocol PRN Reason: Adult Acute Hypoglycemia Prot. remdesivir (EUA) 100 mg/ (Sodium Chloride) 100 mls @ 100 mls/hr IV Q24H [facility] Stop: 10/21/19 10:59 Last Admin: 10/18/19 09:02 Dose: 100 mls/hr Documented by: Dextrose (D5w) 500 mls @ 100 mls/hr IV ONCE PRN; Protocol PRN Reason: Adult Acute Hypoglycemia Prot Insulin Aspart (Novolog) 0 unit SUBCUT WM&BEDTIME [facility]; Protocol Last Admin: 10/18/19 11:59 Dose: Not Given Documented by: Levofloxacin (Levaquin) 500 mg PO DAILY@0600 [facility]; Protocol Last Admin: 10/18/19 06:14 Dose: 500 mg Documented by: Ondansetron HCl (Zofran) 4 mg IVP Q8H PRN PRN Reason: vomiting, or N/V if npo Prochlorperazine (Compazine) 5 mg PO Q8H PRN PRN Reason: N/V Fluticasone/Salmeterol (Advair Diskus 250-50) 1 puff INHALATION 0900,2099 [facility] Tiotropium [place] (Spiriva) 18 mcg INHALATION 2100 [facility] Zinc Gluconate (Zinc Gluconate) 50 mg PO DAILY [facility] Last Admin: 10/18/19 08:58 Dose: 50 mg Documented by: Discharge Plan Discharge Patient Disposition: Xfer Other Condition: Fair Prescriptions: No Action cephalexin 500 mg capsule 500 mg PO QID RF: 0 promethazine 25 mg tablet 25 mg PO QID PRN (Reason: Nausea) RF: 0 ibuprofen 200 mg Tablet 600 mg PO PRN RF: 0 cefdinir 300 mg capsule 300 mg PO BID RF: 0 Glucosamine Complex-MSM Capsule 1 cap PO BID RF: 0 Geovanna Mag Zinc Plus D3 333 mg-133 unit -133 mg-5 mg Tablet 1 tab PO TID RF: 0 Fish Oil 1 cap PO DAILY RF: 0 Ventolin HFA 90 mcg/actuation HFA aerosol inhaler 2 puff INHALATION QID PRN (Reason: Shortness Of Breath) RF: 0 Discharge Orders: Transfer Out of Facility (Order); Ordered 10/18/19 Ordered By: Devendra Brownlee Transfer Attestations Time Spent in Transfer Care*: critical care time Critical Care Time (min): 60 Status at Transfer: Cognitive status at transfer: cognitively intact, Behavioral status at transfer: cooperative, Functional status at transfer: independent ambulation Overall status at transfer: patient is not back to baseline Quality Metrics Clinical Quality Measures: During this hospital stay, did patient experience: None Coding Level of Care Code Acute Grid Operator for g Fwd Diagnoses ARDS (adult respiratory distress syndrome) J80 Pneumonia due to COVID-19 virus U07.1; J12.89 Acute respiratory failure with hypoxia J96.01 IBS (irritable bowel syndrome) K58.9
[2019-10-18 16:40] LABS: Glucose Point of Care 131 mg/dL (70-110)
--- NOTE | 2019-10-18 17:31 | PC.NURSE ---
educated patient on IS usage. also educated on self-proning.
--- NOTE | 2019-10-18 18:23 | PC.NURSE ---
report called to latrice uribe at [facility]. contacted ems for transportation. patients delia contacted.
--- NOTE | 2019-10-18 19:25 | PC.NURSE ---
Patient being transferred via EMS to [facility] for higher level of care.
== END 2019-10-18 19:25 | disposition short-term general hospital (02) | DRG 177 ==
LOC: ER 17:04 → ICU 17:50
PROVIDERS: Admitting Provider Student in an Organized Health Care Education/Training Program; Emergency Provider Family Medicine; Visit Provider Student in an Organized Health Care Education/Training Program
DX: U07.1 COVID-19 (principal); J12.89 Other viral pneumonia; J96.01 Acute respiratory failure with hypoxia; N39.0 Urinary tract infection, site not specified; Z87.891 Personal history of nicotine dependence; K58.0 Irritable bowel syndrome with diarrhea; I83.90 Asymptomatic varicose veins of unspecified lower extremity
CPT/HCPCS: 12345; 36415; 36416; 36600; 71045; 71275; 80053; 81001; 82550; 82728; 82803; 82962; 83036; 83540; 83550; 83605; 83615; 83735; 83880; 84145; 84443; 85025; 85378; 85384; 85610; 85730; 86140; 87040; 87070; 87205; 87426; 87449; 87641; 87804; 94640; 96372; 96375; 99284; J1100; J1650; J1815; J1940; J2405; J3490; J7030; Q9967

== ENCOUNTER → 2021-11-03 10:05 | Outpatient (BNVA) | payer BC, SELFPAY | PROVIDERS: Visit Provider Student in an Organized Health Care Education/Training Program | DX: M17.12 Unilateral primary osteoarthritis, left knee (principal) | CPT/HCPCS: 73560; 73565 ==

== ENCOUNTER 2022-02-18 06:17 | Outpatient (CLI) | payer BC, SELFPAY ==
--- NOTE | 2022-02-18 06:30 | CT_ITS ---
WS: [id number] CT LEFT KNEE, NONCONTRAST [facility] TECHNIQUE: Noncontrast CT of the LEFT knee to include the LEFT hip and ankle. [facility] protocol CLINICAL INFORMATION: Left knee DJD COMPARISON: None. DLP: 957.[address] scans at [facility] use at least one of these dose optimization techniques: automated e xposure control; mA and/or kV adjustment per patient size (includes targeted exams where dose is matc hed to clinical indication); or iterative reconstruction. FINDINGS: Advanced tricompartmental arthritis LEFT knee worse in the medial joint compartment. Rtob-xe-tcud art iculation. Hypertrophic patella. Hypertrophic changes along the joint line. Mild degenerative arthritis sacroiliac joints. A few sigmoid diverticuli. Tiny suprapatellar effusion . CT/CT knee LT [facility] IMPRESSION: Images obtained for preoperative purposes.
== END 2022-02-18 06:18 | disposition home or self-care (01) ==
LOC: RAD 06:18
PROVIDERS: PCP Family Medicine; Visit Provider Student in an Organized Health Care Education/Training Program
DX: M17.12 Unilateral primary osteoarthritis, left knee (principal)
CPT/HCPCS: 73700

== ENCOUNTER 2022-02-24 16:40 | Observation (INO) | payer BC, SELFPAY ==
[2022-02-24] VITALS (17 sets, daily range): BP systolic 132–163; BP diastolic 77–108; PULSE 68–95; RESP 14–20; TEMP 36.2–36.6; O2SAT 94–98; BMI 37.3
[2022-02-24] MEDS: ketorolac 30 mg/mL INJ IVP (10:35)
[2022-02-24] MEDS: acetaminophen 1,000 MG/100 ML PIGGYBACK 400 MG IV ×2 (10:35→22:10)
[2022-02-24] MEDS: lactated ringers 500 ML IV (10:36)
[2022-02-24] MEDS: sodium chloride 0.9% 1,000 ML 30 ML IV (10:36)
--- NOTE | 2022-02-24 13:26 | P.ANESUD_ITS ---
Pre-Anesthetic Update Pre-Anesthetic Assessment: Date of Surgery/Procedure: 02/24/22 Preop Pinky gnosis: Left knee degenerative joint disease, failed conservative treatment Proposed Procedure: Operation Date: 02/24/22 11:45 Proposed Procedures p left knee Total knee Zechariah Arthroplasty 15569 ,M17.12(Left) - Edgar Arana, DO Any changes to Pre-Anesthetic Assessment?: No Last Intake: Intake Last Liquid Date 02/23/22 Last Liquid Time 23:45 Last Solid Date 02/23/22 Last Solid Time 20:00 Labs Last 48hrs: Blood Bank 02/24/22 10:28 Blood Type O Positive Rho(D) Type Positive Antibody Screen Negative Vitals: Temperature 97.5 F L 02/24/22 10:13 Pulse Rate 68 02/24/22 10:13 Respiratory Rate 18 02/24/22 10:13 Blood Pressure 161/108 02/24/22 10:13 Blood Pressure Shweta n 125 02/24/22 10:13 Pulse Oximetry 97 02/24/22 10:13 Oxygen Delivery Me thod 02/24/22 10:13 Exam: Pre-Anes Outpt Exam: alert, oriented x 3, clear to auscultation bilaterally and regular rate & rhythm Cardiac Studies: No Data to Display
--- NOTE | 2022-02-24 13:26 | ANES.PROC ---
Anesthesia Procedures Procedure/Date: 02/24/22 Nerve Block ^: Nerve Block 1: Main Anesthesia: spinal anesthesia block Time Out Performed: Yes Consent: requested by attending/covering physician, from patient, from other, risks and benefits reviewed and patient agrees to proceed Nerve block location: adductor canal (L) Anesthesia monitors applied: pulse oximetry, EKG, BP cuff and oxygen Nerve block position: supine Anesthetic Used: ropivicaine 0.5% and with decadron (4 mg) Amount of anesthesia used (mL): 30 Ultrasound used to: recognize landmarks and visualize and ID femerol nerve Nerve Stimulator Used?: No Interscalene/Femoral BLK: 4 stimuplex 21 g needle used for position and inplane approach, visualize local anesthetic spread and no vascular puncture identified Patient Tolerated Procedure: well and no complications Complications: none
--- NOTE | 2022-02-24 13:38 | PM.HP ---
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 Patient's failed all conservative treatment options. Through shared decision making in the office we talked about the risk benefits complication alternatives to surgical nonsurgical treatment options. At this point time with [id number] arthritis feel in his best interest would be a left total knee arthroplasty. Through shared decision-making he agrees to proceed with surgical intervention. We detailed out the risk which include but are not limited to make it better, make it worse, blood clot, heart attack, stroke, on the table, infection, arthrofibrosis. Understanding these risks he agrees to proceed with surgical intervention all questions answered at this time. No changes HPI since last office visit. Review of Systems General: Reports: 10 or more systems reviewed and unremarkable except in HPI and below Medications/Allergies Home Medications Medication Instructions Recorded Confirmed Last Taken Type albuterol sulfate 90 mcg/actuation 2 puff inhalation PRN PRN 10/17/19 02/24/22 2 Months Ago History aerosol inhaler (Ventolin HFA) Shortness Of Breath ~12/25/21 calcium carb 333 mg-vit D3 133 1 tab PO TID 10/17/19 02/24/22 02/23/22 History unit-mag ox 133 mg-zinc oxide 5 mg tab (Maximino Mag Zinc Plus D3) [id number]-sef-dgxyzsncm-vitC 1 cap PO BID 10/17/19 02/24/22 02/23/22 History capsule (Glucosamine Complex-MSM capsule) ibuprofen 200 mg tablet 600 mg PO PRN 10/17/19 02/24/22 02/22/22 History Allergies Allergy/AdvReac Type Severity Reaction Status Date / Time aluminum Allergy Mild rash Verified 02/24/22 10:06 PFSH Acute PFSH: Medical History Former smoker IBS (irritable bowel syndrome) Left knee DJD Varicose vein of leg Surgical History History of appendectomy Family History Denies family history of Diabetes CAD (coronary artery disease) Hyperlipidemia Chronic kidney disease (CKD) Family history of premature coronary artery disease Lung disease Hypertension Social History Smoking and tobacco status: former smoker Alcohol intake: never Household members: family Housing: House Vitals/I&O/Wt Last Vital Signs Temp 97.5 F L 02/24/22 10:13 Pulse 68 02/24/22 10:13 Resp 18 02/24/22 10:13 BP 161/108 02/24/22 10:13 Pulse Ox 97 02/24/22 10:13 O2 Del Method 02/24/22 10:13 02/23/22 02/24/22 02/24/22 22:59 06:59 14:59 Intake Total 600 / 600 Balance 600 / 600 Weight last 48 hrs Weight 260 lb Physical Exam Narrative: Constitutional?alert oriented able to follow commands HEENT?normocephalic atraumatic Respiratory?no acute respiratory distress Cardio?distal pulses palpable MSK?examination of the left lower extremity negative logroll. Normal hip range of motion. Decreased range of motion of the left knee secondary to pain. Severe tenderness to palpation over the medial compartment of the knee. Small 3 to 5 degree flexion contracture noted. Patient is able to wiggle toes plantarflex and dorsiflex ankle. Distal pulses palpable. Sensation intact light touch to the SPN/DPN/tibial/saphenous/sural nerve distribution. A&P Assessment and plan (1) Left knee DJD: Plan Patient is here today for surgical intervention of his left knee of the left total knee arthroplasty. He has been seen evaluated by his primary care physician and cleared for surgical intervention. He has been seen evaluated by Anesthesia Department and cleared for surgery. He is received a preoperative CT scan with plan for left total knee Zechariah arthroplasty. Patient has no current issues or change in his HPI or medical record since our last office visit. Consent was signed and reviewed with patient. All questions answered. Understands risk benefits complication alternatives surgery and agrees to proceed. All questions answered. Attestations Medical Necessity Statement*: Left total knee arthroplasty Coding Level of Care Code Acute Facilities Operator for Chg Fwd Diagnoses Left knee DJD M17.12 Time Spent (min) 45
[2022-02-24] MEDS: ceFAZolin 2,000 MG in sodium chloride 0.9% (plus) 50 ML 100 MG IV ×2 (13:43→21:23)
[2022-02-24] MEDS: tranexamic acid 1,000 mg/10mL SDV 1000 MG IV (14:20)
[2022-02-24] MEDS: ketorolac 30 mg/mL INJ XX (15:22)
[2022-02-24] MEDS: tranexamic acid 1,000 mg/10mL SDV 1000 MG XX (15:22)
[2022-02-24] MEDS: EPINEPHrine 1 mg/mL INJ XX (15:22)
--- NOTE | 2022-02-24 17:01 | XRR_ITS ---
PROCEDURE INFORMATION: Exam: XR Left Knee Exam date and time: 02/24/2022 5:01 PM Age: 56 years old Clinical indication: Other: Total knee post op; Prior surgery; Surgery date: Post-operative (0-2 days); Additional info: L tka postop TECHNIQUE: Imaging protocol: Radiologic exam of the Left knee. Views: 1 or 2 views. COMPARISON: No relevant prior studies available. FINDINGS: Bones/joints: Postoperative changes of left-sided total knee replacement. The hardware is intact. The alignment is near anatomic. No evidence of fracture. Soft tissues: There is soft tissue gas present, related to surgery. XR/XR knee LT 1-2V [id number] IMPRESSION: Status post left total knee replacement. No evidence of complication.
--- NOTE | 2022-02-24 17:10 | P.OP_ITS ---
Brief Operative Note Date of procedure: 02/24/22 Pre-op diagnosis: Left knee degenerative joint disease, failed conservative tr eatment Post-op diagnosis: same Procedure Done: Left total knee arthroplasty?Zechariah robotic assisted Surgeon: Edgar Arana Estimated blood loss (mL): 10 Complications: None Post-op Plan: Patient taken to PACU in stable condition recovering well. Patient received spinal anesthesia and beginning to wear off. Patient be admitted to the floor. Internal medicine consulted for medical management and assistance. We will be weightbearing as tolerated to the left lower extremity as well as encourage range of motion ice and elevate as needed. Postoperative TXA, antibiotics as well as pain medication and DVT prophylaxis. Orthopedics will continue to follow along with patient. PT/OT Condition: stable Disposition: floor Coding Level of Care Code Acute Applied Anthropologist for Tonya Carias
--- NOTE | 2022-02-24 17:11 | PM.PACU ---
PACU note Narrative: Patient taken to PACU in stable condition recovering well. Spinal anesthesia beginning to wear off still unable to thoroughly assess motor and sensory. Will reassess in the a.m. Distal pulses are palpable. Toes are warm well perfused compartment soft compressible. Dressing on in place clean dry and intact. Exam: awake Disposition: admitted
--- NOTE | 2022-02-24 17:12 | P.OP_ITS ---
Operative Report Date of procedure: February 24, 2022 Pre-op diagnosis: Preop Diagnosis Left knee degenerative joint disease, failed conservative treatment Post-op diagnosis: Same Procedure done: Left total knee arthroplasty-robotic assisted Zechariah Implants: Darryn triathlon femoral cruciate retaining implant size 4 Size 5 triathlon tibial baseplate Size 11 mm polyethylene Asymmetric patella 32 mm Surgeon: Edgar Arana DO Estimated blood loss: 10mL 82min IV fluids: 1100mL Urine output: 500mL Complications: NOne Findings: See op note Condition: stable Disposition: floor Brief History: Patient seen evaluated in the outpatient setting and worked up for preoperative diagnosis of severe degenerative joint disease of the left knee. He is failed conservative treatment. At this point we had discussion about treatment options and through shared decision making he elects to proceed with a left total knee arthroplasty. He understands the risk benefits complications alternatives to surgical nonsurgical treatment options. Risks of surgery he agrees proceed. He has been seen by his primary care physician who is cleared him for surgery as well as anesthesia department. Preoperative holding area consent reviewed and signed and agreeable to surgical intervention. All questions answered at this time. Procedure: Patient seen evaluated in the preoperative holding area.? Consent was reviewed with patient and signed.? The correct extremity was then marked.? Patient seen evaluated by the anesthesia and preoperative team once cleared for surgery was taken back to the operative suite.? Patient taken back to the operative suite.? He underwent spinal anesthesia per the anesthesia department.? He transported the operative table.? All bony prominences well-padded patient was appropriately secured to the bed.? This point time the left lower extremity was then prepped and draped in standard orthopedic fashion.? Patient received appropriate preoperative antibiotics.? Final timeout performed. Esmarch tourniquet was used exsanguinate the left lower extremity.? Tourniquet was insufflated to 250 mmHg. A standard anterior incision was made over midline of the knee.? Sharp scalpel excision through skin and subcutaneous tissue full-thickness skin flaps were made.? Fascia was elevated off of the extensor retinaculum was stable with parapatellar arthrotomy was then made.? The performed standard sequential releases with a medial release was patient had a varus deformity.? Next the the patella was then stopped and the knee was then flexed.? Armboard was placed superiorly around the anterior aspect of the femur this was freed avulsed synovium and I subsequently then placed by 2 femur pins to establish my femur arrays for the Zechariah robot.? These were then placed bicortically and by femur rate was then appropriately secured with appropriate visualization.? Next attention was turned towards the tibial rays.? These were then drilled sequentially bicortically in parallel fashion.? I then placed my guide as well as my tibial array on in place.? This was appropriately secured and had excellent visualization with the Zechariah robot.? Next the tibial checkpoint as well as femur checkpoint were then placed.? At this point time I then subsequently established my head center as well as my medial lateral malleoli as well as my checkpoints.? Next utilizing standard Zechariah technology I then mapped out the appropriate points and confirmation points around the femur as well as the tibia in standard fashion.? Once this was then done I then removed all osteophytes in preparation for dynamic testing.? All osteophytes were removed as well as I removed the ACL and left the PCL intact.? At this point time the knee was brought into full extension and we performed our standard evaluation of our gap balancing stressing her ligaments and extension as well as flexion appropriate adjustments were made to have appropriate gap balancing in both flexion and extension.? This plan for final counts.? We get a preoperative plan evaluating our implants which was a size 4 femur and a size 5 tibia.? Next we brought in the Zechariah robot and sequentially made our femur cuts. Collaterals were protected throughout the case.? All excess bony cuts were then removed.? Finally we made our tibial cut.? Once this was done a standard PCL retractor was then placed into this position I excised the medial and lateral meniscus.? The tibial cut was then subsequently removed all excess bony debris was removed.? I then utilized a lamina profiling machine set up operator tool and remove the posterior osteophytes.? At this point time sized the tibia and confirmed this was a size 5.? I utilized our blunt probe to establish rotation of tibial implant.? Once this was done I then placed my tibia size 5 trial in appropriate position and then subsequently placed tibial pins to hold this into place placed a size 9 mm poly as well as a size 4 femur which was appropriately impacted in place knee was then subsequently brought into extension.? Slight hyperextension was then subsequently noted.? I increased my policy thickness to 11 mm and this was stable with varus valgus stress.? Bringing up into flexion this did feel slightly tight.? Then utilizing electrocautery performed a standard PCL release as we were using ultracongruent tibial poly.? Once this was done I had excellent balance gaps in flexion and extension with varus and valgus stresses.? At this point I was satisfied with these implants these were then verified and opened on the back table size 5 tibia size 4 femur size 11 mm polythickness.? We did confirm appropriate gap balancing and stresses as well as alignment utilizing Zechariah and were satisfied with this plan.? At this point time with my trials in place I then towel clip the patella everted this made appropriate measurements subsequently utilizing freehand technique performed by patellar resurfacing this was confirmed to be appropriate resection and subsequently sized to be a 32 mm.? My drill peg guides were then clamped and appropriate position and appropriate position in the patella for appropriate tracking and parallel with the joint.? Pegs were drilled trial implant was placed and the knee was then subsequently ranged and found to have excellent patellar tracking.? At this point time all of our trial implants were removed.? The wound bed bone was thoroughly dried and prepped for cementation.? Cement was mixed on the back table.? Once cement was ready this was then covered onto the tibia and the tibial baseplate was then impacted and all excess cement was removed.? Next the polyethylene was then impacted into place and the tibial baseplate.? Next cement was placed onto the femur as well as under the femur implants and impacted in to place and all excess cement was extruded.? Knee was taken into full extension? to clear all excess cement was removed.? Warm saline was placed over the joint.? I then towel clip patella and cemented the patella into place.? This was all clamped and the cement was allowed to cure.? Thorough irrigation performed with pulse lavage.? I then placed my periarticular injection while the cement was curing.? Once cured the knee was taken through range of motion and had excellent stability with varus valgus stress and stable in flexion.? Tourniquet was then deflated.? Once tourniquet was deflated hemostasis satisfactory with electrocautery.? Next I then subsequently closed the capsule with a running strata fix suture.? He was then taken through range of motion 30 times.? Next the skin was then closed in layered fashion utilizing running strata fix sutures for deep subcu as well as superficial and a Monocryl strata fix suture was used for the skin.? He was closed in flexion and Prineo glue was then placed over the incision this allowed to set.? Incision was covered with ABDs soft roll and Phil wrap.? Patient was then awakened from anesthesia and taken to PACU in stable condition. Disposition: Patient taken to PACU in stable condition will be admitted to the floor for pain control PT/OT weight-bear as tolerated left lower extremity dressing changes as needed, DVT prophylaxis.? Patient will be seen today by the internal medicine team for medical management.? Patient will follow up with the office in 2 weeks.? Patient understands agrees with current plan.? All questions answered.
--- NOTE | 2022-02-24 17:20 | ANE.PACU2 ---
Inpatient post-anesthesia follow up: Airway intact: Yes Vital signs: Temperature 98.4 F Pulse Rate 81 Respiratory Rate 16 Blood Pressure 146/80 Pulse Oximetry 95 Oxygen Delivery Me thod Room Air Oxygen Flow Rate Fraction of Inspir ed Oxygen Hydration adequate: Yes Nausea and vomiting: No Pain level: 1 Mental status: Baseline
--- NOTE | 2022-02-24 17:32 | P.CONIM_ITS ---
Providers/Reason For Consult Consulting Physician/Specialty*: Dr. Brownlee/internal medicine Reason for Consult*: Medical comorbidities Requesting Physician: Dr. Arana Attending Physician: Edgar Arana DO Primary Care Provider: Mike Hudson MD History of Present Illness History of Present Illness Dandre Aguayo is a 56 year old male with past medical history of ARDS secondary to COVID-19 in 2019 was admitted to the hospital under orthopedics today and underwent left total knee arthroplasty. Medicine was consulted to take care of of medical comorbidities while patient was in the hospital. At baseline patient states he is not on any medications, does have an inhaler which he very seldomly use. Patient states usually he is pretty healthy. No blood work present in the chart. Patient seen in PACU with heart rate of 70 bpm and blood pressure 132/77 satting 96% on room air, awake and alert able to have complete conversation. Patient has baseline is able to walk around without having any difficulty in breathing or chest pain. Does denies history of CAD in family. Review of Systems General: Reports: 10 or more systems reviewed and unremarkable except in HPI and below Const: Denies: fever(s), chills, body aches, change in appetite, change in weight, malaise, night sweats, diaphoresis, change in sleep pattern, daytime sleepiness or snoring Eyes: Denies: change in vision, blurry vision, photophobia, eye discomfort or eye discharge ENMT: Denies: throat pain, enlarged tonsils, hoarseness, mouth pain, oral sores, dry mouth, tinnitus, nasal congestion or post nasal drip Card: Denies: chest pain, palpitations, irregular heart rhythm, edema, swelling of feet/ankles, lightheadedness, syncope, pre-syncope, dyspnea on exertion, orthopnea, leg pain with exertion or acrocyanosis Resp: Denies: dyspnea, productive cough, non-productive cough, wheezing, stridor, pain on inspiration, change in phlegm color, hemoptysis or chest congestion GI: Denies: abdominal pain, nausea, vomiting, hematemesis, coffee ground emesis, dysphagia, heartburn, diarrhea, constipation, bloating, GI cramping, change in bowel habits, pain on defecation, hematochezia or melena : Denies: flank pain, difficulty urinating, dysuria, urinary frequency, urinary urgency, urinary hesitancy, urinary dribbling, difficulty starting urination, change in urine stream, nocturia or hematuria Musc: Denies: neck pain, back pain, extremity pain, joint pain, joint swelling, joint redness, joint stiffness or limited range of motion Neuro: Denies: headache(s), numbness in extremities, weakness in extremities, sensory changes, lack of coordination, difficulty walking, frequent falls, dizziness, vertigo, confusion, Slurred speech present, difficulty communicating thoughts or seizure-like activity Psych: Denies: anxiety, depression, mood swings, panic attacks, hopelessness or irritability Endo: Denies: polyuria, polydipsia, tired all the time, cold intolerance, excessive sweating, flushing or heat intolerance Grey/Lymph: Denies: easy bruising or easy bleeding All/Imm: Denies: tongue swelling, facial swelling or acute wheezing Medications/Allergies Home Medications Medication Instructions Recorded Confirmed Last Taken Type albuterol sulfate 90 mcg/actuation 2 puff inhalation PRN PRN 10/17/19 02/24/22 2 Months Ago History aerosol inhaler (Ventolin HFA) Shortness Of Breath ~12/25/21 calcium carb 333 mg-vit D3 133 1 tab PO TID 10/17/19 02/24/22 02/23/22 History unit-mag ox 133 mg-zinc oxide 5 mg tab (Maximino Mag Zinc Plus D3) pkiglyyeojl-dxs-ungzuqvhx-vitC 1 cap PO BID 10/17/19 02/24/22 02/23/22 History capsule (Glucosamine Complex-MSM capsule) ibuprofen 200 mg tablet 600 mg PO PRN 10/17/19 02/24/22 02/22/22 History Allergies Allergy/AdvReac Type Severity Reaction Status Date / Time aluminum Allergy Mild rash Verified 02/24/22 10:06 Current Medications Generic Name Dose Route Start Last Admin Trade Name Freq PRN Reason Stop Dose Admin Sodium Chloride 1,000 mls @ 30 mls/hr 02/24/22 10:00 02/24/22 15:28 Sodium Chloride 0.9% IV 02/25/22 09:59 Infused .Q24H MARTINEZ Infusion PFSH Acute PFSH: Medical History (Updated 02/24/22 @ 18:06 by Devendra Brownlee MD) ARDS (adult respiratory distress syndrome) Former smoker IBS (irritable bowel syndrome) Left knee DJD Pneumonia due to COVID-19 virus Varicose vein of leg Surgical History History of appendectomy Family History Denies family history of Diabetes CAD (coronary artery disease) Hyperlipidemia Chronic kidney disease (CKD) Family history of premature coronary artery disease Lung disease Hypertension Social History Smoking and tobacco status: former smoker Alcohol intake: never Household members: family Housing: House Vitals/I&O/Wt Last Vital Signs Temp 97.2 F L 02/24/22 17:30 Pulse 72 02/24/22 17:30 Resp 14 02/24/22 17:30 BP 132/77 02/24/22 17:30 Pulse Ox 96 02/24/22 17:15 O2 Del Method 02/24/22 17:30 02/24/22 02/24/22 02/24/22 06:59 14:59 22:59 Intake Total 600 / 600 2300 / 2900 Output Total 1005 / 1005 Balance 600 / 600 1295 / 1895 Weight last 48 hrs Weight 117.934 kg Physical Exam Narrative: General: No acute distress, AO x3 HEENT: PERRLA, pupils bilaterally equal and reactive Chest: Normal vesicular breath sounds, no added sounds, equal good air entry bilaterally CVS: S1-S2 regular, no murmurs, no tachycardia, no gallops, no rubs Abdomen: Soft, nontender, no organomegaly, bowel sounds present Neuro: No focal deficits, no facial deformity, AO x3, power 5/5 in all limbs Urinary Catheter Management: Mejia: Cath Placed During This Visit: yes Urinary Catheter Date of Insertion: 02/24/22 Urinary Catheter Time of Insertion: 14:35 A&P Assessment and plan (1) Encounter for postoperative care: Postoperative day 0. Perioperative antibiotics, anticoagulation, physical therapy, pain control as per primary team. Monitor hemoglobin. Keep oxygen saturation over 90%. (2) Left knee DJD: Plan Check CBC, CMP, EKG, A1c, lipid panel. DuoNebs as needed. Thank you for involving us in care of Mr. Aguayo. Please call with any questions. Consult Attestations Medical Necessity Statement: As per primary team Time Spent in Patient Care: Greater than 35 minutes Coding Level of Care Code Acute Textile Machine Maintenance Mechanic for Georgeg Fwziyad Diagnoses Encounter for postoperative care Z48.89 Left knee DJD M17.12
--- NOTE | 2022-02-24 17:33 | PC.NURSE ---
unable to document ku maintenance. Ku draining well. DR Villa @ bedside
[2022-02-24] MEDS: docusate sodium 100 mg Capsule PO (18:43)
[2022-02-24] MEDS: cholecalciferol (vitamin D3) 1,000 unit Tablet 1000 UNIT PO (18:43)
[2022-02-24] MEDS: calcium carbonate 500 mg Chew Tablet 1000 MG PO (18:43)
[2022-02-24] MEDS: lactated ringers 1,000 ML 100 ML IV (18:43)
[2022-02-24] MEDS: famotidine 20 mg/2 mL INJ IVP (18:43)
[2022-02-24] MEDS: mupirocin oint 22 gm 1 APPLIC NASAL (18:44)
[2022-02-24] MEDS: multivitamin therapeutic Tablet 1 TAB PO (18:44)
[2022-02-24] MEDS: chlorhexidine gluconate 0.12% Btl 473 mL 30 ML MUCOUS MEM (20:02)
[2022-02-24] MEDS: iron polysaccharide complex 150 mg Capsule PO (20:03)
[2022-02-24 21:16] LABS: Basophils % 0.1 %; Eosinophils % 0.1 %; Hematocrit 44.9 % (42.0-52.0); Hemoglobin 14.8 g/dL (11.7-16.6); Lymphocytes % 6.9 %; Mean Corpuscular Hemoglobin 30.8 pg (28.0-34.0); Mean Corpuscular Volume 93.5 fl (80-94); Mean Platelet Volume 9.1 fL (7.4-10.4); Monocytes # 0.2 10^3/uL (0.2-0.9); Monocytes % 1.3 %; Neutrophils # 13.59 10^3/uL (1.8-7.7); Nucleated Red Blood Cells % 0 %; Platelet Count 282 10^3/cmm (130-400); Red Cell Distribution Width 13.1 % (12.1-15.1); White Blood Count 14.9 10^3/uL (4.0-10.0)
[2022-02-24 23:58] LABS: Urine Appearance Clear (CLEAR); Urine Color Yellow (Yellow)
[2022-02-24 23:59] LABS: Add Urine Microscopic? YES; Bilirubin Urine Neg (Negative); Blood Urine 2+ (Negative); Glucose Urine UA 4+ (Normal); Ketones Urine Negative (Negative); Leukocyte Esterase Urine Negative (Negative); Nitrate Urine Negative (Negative); Protein Urine Neg (Negative); Specific Gravity, Urine 1.015 (1.005-1.030); Urobilinogen Urine Norm (Negative); pH Urine 7 (5-7)
[2022-02-25] VITALS (7 sets, daily range): BP systolic 139–151; BP diastolic 69–83; PULSE 81–93; RESP 15–16; TEMP 36.6–36.9; O2SAT 91–95
[2022-02-25] LABS: Add Urine Culture? No; Hyaline Casts Urine 0-4 /lpf; RBC Urine 80-100 /hpf (0-2); WBC Urine 0-4 /hpf (0-5)
[2022-02-25 02:44] LABS: Alanine Aminotransferase 27 U/L (0-41); Albumin Level 4.2 g/dL (3.5-5.2); Alkaline Phosphatase 75 U/L (40-130); Anion Gap 15.4 (5-19); Aspartate Amino Transferase 22 U/L (0-40); Blood Urea Nitrogen 11 mg/dL (6-20); Calcium 9.3 mg/dL (8.5-10.5); Carbon Dioxide 23 mmol/L (22-29); Chloride 104 mmol/L (98-107); Globulin 2.6 g/dL (1.3-4.6); Glomerular Filtration Rate 87.6 mL/min (90-130); Glucose 209 mg/dL (65-115); Iron 70 ug/dL (59-158); Osmolality Calculated 292 mOsm/kg (285-295); Percent Saturation 23.1 % (20-50); Potassium 4.4 mmol/L (3.5-5.1); Sodium 138 mmol/L (136-145); Total Bilirubin 0.4 mg/dL (0.15-1.2); Total Iron Binding Capacity 302 mcg/dl; Total Protein 6.8 g/dL (6.6-8.7); Unsaturated Iron Binding 232 ug/dL (112-347)
[2022-02-25 03:04] LABS: Thyroid Stimulating Hormone 0.35 uIU/mL (0.27-4.20); Vitamin B12 842 pg/mL (232-1245)
[2022-02-25 03:17] LABS: Folate Level > 20.0 ng/mL (4.5-32.2)
[2022-02-25] MEDS: ceFAZolin 2,000 MG in sodium chloride 0.9% (plus) 50 ML 100 MG IV (04:55)
[2022-02-25] MEDS: lactated ringers 1,000 ML 100 ML IV (04:55)
[2022-02-25 05:50] LABS: Basophils % 0.2 %; Eosinophils % 0.1 %; Hematocrit 40.4 % (42.0-52.0); Hemoglobin 13.5 g/dL (11.7-16.6); Lymphocytes # 1.7 10^3/uL (0.8-4.8); Lymphocytes % 10.2 %; Mean Corpuscular HGB Conc 33.4 g/dL (30.0-36.0); Mean Corpuscular Hemoglobin 30.9 pg (28.0-34.0); Mean Corpuscular Volume 92.4 fl (80-94); Mean Platelet Volume 9.4 fL (7.4-10.4); Monocytes # 0.9 10^3/uL (0.2-0.9); Monocytes % 5.5 %; Neutrophils # 14.24 10^3/uL (1.8-7.7); Neutrophils % 83.6 %; Nucleated Red Blood Cells % 0 %; Platelet Count 283 10^3/cmm (130-400); Red Blood Count 4.37 10^6/uL (4.1-5.3)
[2022-02-25] MEDS: acetaminophen 1,000 MG/100 ML PIGGYBACK 400 MG IV (06:03)
[2022-02-25] MEDS: oxyCODONE 5 mg IR Tab/Cap PO (06:03)
[2022-02-25 06:09] LABS: Estmated Average Glucose 120; Hemoglobin A1C 5.8 % (4.0-6.0)
[2022-02-25 06:18] LABS: Alanine Aminotransferase 21 U/L (0-41); Albumin Level 3.9 g/dL (3.5-5.2); Alkaline Phosphatase 65 U/L (40-130); Anion Gap 14.8 (5-19); Aspartate Amino Transferase 19 U/L (0-40); Blood Urea Nitrogen 11 mg/dL (6-20); Calcium 8.3 mg/dL (8.5-10.5); Carbon Dioxide 23 mmol/L (22-29); Chloride 105 mmol/L (98-107); Chol HDL Ratio 6.46 mg/dL (1.0-5.00); Cholesterol 226 mg/dL (0-200); Globulin 2.1 g/dL (1.3-4.6); Glomerular Filtration Rate 117.1 mL/min (90-130); Glucose 105 mg/dL (65-115); HDL Cholesterol 35 mg/dL (60-100); LDL Cholesterol Calculated 143 mg/dL (50-129); Osmolality Calculated 288 mOsm/kg (285-295); Potassium 3.8 mmol/L (3.5-5.1); Sodium 139 mmol/L (136-145); Total Bilirubin 0.5 mg/dL (0.15-1.2); Triglycerides 241 mg/dL (0-150); VLDL Cholestrol Calculation 48 mg/dL (0-30)
--- NOTE | 2022-02-25 08:20 | PC.NURSE ---
Physical therapy at bedside evaluating pt
[2022-02-25] MEDS: cholecalciferol (vitamin D3) 1,000 unit Tablet 1000 UNIT PO (09:17)
[2022-02-25] MEDS: multivitamin therapeutic Tablet 1 TAB PO (09:17)
[2022-02-25] MEDS: apixaban 5 mg Tablet 2.5 MG PO (09:18)
[2022-02-25] MEDS: calcium carbonate 500 mg Chew Tablet 1000 MG PO (09:19)
[2022-02-25] MEDS: iron polysaccharide complex 150 mg Capsule PO (09:19)
[2022-02-25] MEDS: chlorhexidine gluconate 0.12% Btl 473 mL 30 ML MUCOUS MEM (09:20)
[2022-02-25] MEDS: mupirocin oint 22 gm 1 APPLIC NASAL (09:20)
--- NOTE | 2022-02-25 12:04 | PM.PN ---
Subjective Subjective: Patient seen and examined this morning as well as at lunchtime patient doing well is gotten up and worked with therapies walked laps around the walker. Doing extremely well. Pain controlled. Ready for discharge. Vitals/I&O/Wt Last Vital Signs Temp 98.3 F 02/25/22 11:06 Pulse 88 02/25/22 11:06 Resp 16 02/25/22 11:06 BP 151/69 02/25/22 11:06 Pulse Ox 94 02/25/22 11:06 O2 Del Method 02/25/22 11:06 02/24/22 02/25/22 02/25/22 22:59 06:59 14:59 Intake Total 2500 / 3100 1160 / 4260 500 / 500 Output Total 3005 / 3005 950 / 3955 Balance -505 / 95 210 / 305 500 / 500 Weight last 48 hrs Weight 260 lb Physical Exam Narrative: Examination of the left lower extremity dressings on in place are clean dry and intact. Ice applied to the left knee. He is able to wiggle toes plantarflex dorsiflex ankle. Sensation and is intact light touch distally in SPN/DPN/tibial/saphenous/sural nerve distribution. Mild diffuse tenderness to palpation of the left knee. Mild tenderness of thigh tourniquet pain. Distal pulses palpable. Urinary Catheter Management: Mejia: Cath Placed During This Visit: yes, but has since been removed by the nurse Reason for Continuing Indwelling Catheter: Decision to DC Catheter Urinary Catheter Date of Insertion: 02/24/22 Urinary Catheter Time of Insertion: 14:35 Date Urinary Catheter Removed: 02/25/22 Time Urinary Catheter Discontinued: 06:00 Data 02/25/22 05:20 02/25/22 05:20 Xray Ortho: My impression: X-rays of the left knee postop demonstrate stable left total knee arthroplasty with no periprosthetic fracture and stable implants and alignment. A&P Assessment and plan (1) Status post total left knee replacement: Plan PT/OT Weight-bear as tolerated left lower extremity Ice and elevate as needed Pain control Postoperative antibiotics DVT prophylaxis Internal medicine on board for medical management Patient stable for discharge from orthopedic standpoint will follow-up with me in the office in 2 weeks Attestations Medical Necessity Statement*: Postoperative care left total knee arthroplasty Coding Level of Care Code Acute Code for Chg Fwd Diagnoses Status post total left knee replacement Z96.656
--- NOTE | 2022-02-25 13:02 | PM.PN ---
Subjective Subjective: No acute events overnight. Patient not seen today as has been discharged and wants to leave as soon as possible. As per the nurse he has been tolerating postop period well. On review of chart blood pressures have mostly been over 150 systolics. Patient does have some leukocytosis which is most likely reactionary to postoperative status. He has remained afebrile. Other blood work showed dyslipidemia. Recommendations of starting a statin for dyslipidemia and amlodipine 5 mg was discussed in detail with the patient over the phone as he wanted to leave as soon as possible and did not want for me to see him in person. We discussed that higher blood pressures of more than 140/90 mmHg with dyslipidemias puts him at a high risk of ACS and CVA. Discussed that he should be on a atorvastatin of at least 40 mg daily and amlodipine 5 mg daily with advised to monitor blood pressures daily and maintain a blood pressure diary at home and rechecking lipid panel in 6 months.. Also discussed the possible adverse effects of transaminitis myalgias from statins in detail. Patient verbalized understanding and for now is agreeable to start the medications and follow-up with his primary care provider in 2 weeks. All the questions were answered. Vitals/I&O/Wt Last Vital Signs Temp 98.3 F 02/25/22 11:06 Pulse 88 02/25/22 11:06 Resp 16 02/25/22 11:06 BP 151/69 02/25/22 11:06 Pulse Ox 94 02/25/22 11:06 O2 Del Method 02/25/22 11:06 02/24/22 02/25/22 02/25/22 22:59 06:59 14:59 Intake Total 2500 / 3100 1160 / 4260 500 / 500 Output Total 3005 / 3005 950 / 3955 Balance -505 / 95 210 / 305 500 / 500 Weight last 48 hrs Weight 117.934 kg Physical Exam Narrative: Could not be examined as patient left prior to be seen Urinary Catheter Management: Mejia: Cath Placed During This Visit: yes, but has since been removed by the nurse Reason for Continuing Indwelling Catheter: Decision to DC Catheter Urinary Catheter Date of Insertion: 02/24/22 Urinary Catheter Time of Insertion: 14:35 Date Urinary Catheter Removed: 02/25/22 Time Urinary Catheter Discontinued: 06:00 Data 02/25/22 05:20 02/25/22 05:20 A&P Assessment and plan (1) Encounter for postoperative care: Postoperative day 0. Perioperative antibiotics, anticoagulation, physical therapy, pain control as per primary team. Hemoglobin has remained stable. Keep oxygen saturation over 90%. (2) Left knee DJD: Plan Dyslipidemia: New diagnosis. Discussed in detail with the patient. He is agreeable to start atorvastatin 40 mg oral daily. Patient will be discharged on same. Benign hypertension: Goal blood pressure less than 140/90 emergency. Start on amlodipine 5 mg daily. Maintain blood pressure diary and follow-up with a primary care provider within the next 2 weeks for further adjustment of antihypertensives as needed. DuoNebs as needed. Thank you for involving us in care of Mr. Aguayo. Please call with any questions. Attestations Medical Necessity Statement*: As per primary team. Time Spent in Patient Care: Greater than 35 minutes Coding Level of Care Code Acute Code for Chg Fwd Diagnoses Encounter for postoperative care Z48.89 Left knee DJD M17.12
--- NOTE | 2022-02-25 14:31 | P.DS_ITS ---
Discharge Providers Date of Admission: 02/24/22 16:40 Date of Discharge: February 25, 2022 Attending Provider at Admission: Edgar Arana DO Attending Provider at Discharge: Edgar Arana DO Consults: Hospitalist Primary Care Provider: Mike Hudson MD Diagnoses at Discharge Discharge Diagnosis (1) Encounter for postoperative care: Status: Acute (2) Left knee DJD: Status: Acute Reason for Visit Reason for Visit: M17.12 Brief History: Patient had failed conservative treatment in the outpatient setting of left generative joint disease of the knee. After failed conservative treatment agree d upon left total knee arthroplasty as patient is [id number] arthritis he presented the hospital for left total knee arthroplasty and was admitted for postoperative monitoring and pain control. Hospital Course Hospital Course Patient been worked up in the outpatient setting for degenerative joint disease of the left knee failed conservative treatment. Brought in the hospital for left total knee arthroplasty. Patient was brought in the preoperative holding area once cleared for surgery and evaluate by anesthesia was taken back surgery for a left total knee arthroplasty which she underwent without any issues. Was taken back to PACU in stable condition. He was admitted to the floor postoperatively for postoperative monitoring pain control as well as therapy. Patient had a Mejia catheter as he had received spinal anesthesia Mejia was removed. Patient then worked with therapy and ambulated successfully with plan for home discharge. Internal medicine was consulted for medical management. Patient received appropriate antibiotics postoperatively, DVT prophylaxis and pain control. Postoperative labs were monitored daily. Patient subsequently on postop day 1 was determined to be stable for discharge for home. He will follow-up with me in the office in 2 weeks. Patient understands his discharge instructions as well as pain medication postoperatively. Understand if there are any questions or concerns and contact the office will be discharged on Eliquis for DVT prophylaxis, oxycodone for pain medication, supplement with Tylenol for pain, Colace for constipation, antinausea medication. Patient understands and agrees with current plan. All questions answered. Physical Exam Narrative: Examination of the left lower extremity dressings on in place are clean dry and intact.? Ice applied to the left knee.? He is able to wiggle toes plantarflex dorsiflex ankle.? Sensation and is intact light touch distally in SPN/DPN/tibial/saphenous/sural nerve distribution.? Mild diffuse tenderness to palpation of the left knee.? Mild tenderness of thigh tourniquet pain.? Distal pulses palpable. Urinary Catheter Management: Mejia: Cath Placed During This Visit: yes, but has since been removed by the nurse Reason for Continuing Indwelling Catheter: Decision to DC Catheter Urinary Catheter Date of Insertion: 02/24/22 Urinary Catheter Time of Insertion: 14:35 Date Urinary Catheter Removed: 02/25/22 Time Urinary Catheter Discontinued: 06:00 Discharge Data Studies Completed and Pending Completed Studies During Hospitalization Category Date Time Status XR knee LT 1-2V [id number] Routine Exams 02/24/22 17:01 Completed Pending at discharge Category Date Time Status Retype for Patiets ABO/Rh Routine Lab 02/24/22 11:33 Received Radiology Impressions Knee X-Ray 02/24/22 17:01 IMPRESSION: Status post left total knee replacement. No evidence of complication. Laboratory Results WBC 17.0 10^3/uL (4.0-10.0) H 02/25/22 05:20 RBC 4.37 10^6/uL (4.1-5.3) 02/25/22 05:20 Hgb 13.5 g/dL (11.7-16.6) 02/25/22 05:20 Hct 40.4 % (42.0-52.0) L 02/25/22 05:20 MCV 92.4 fl (80-94) 02/25/22 05:20 MCH 30.9 pg (28.0-34.0) 02/25/22 05:20 MCHC 33.4 g/dL (30.0-36.0) 02/25/22 05:20 RDW 13.0 % (12.1-15.1) 02/25/22 05:20 Plt Count 283 10^3/cmm (130-400) 02/25/22 05:20 MPV 9.4 fL (7.4-10.4) 02/25/22 05:20 Neut % (Auto) 83.6 % 02/25/22 05:20 Lymph % (Auto) 10.2 % 02/25/22 05:20 [place] % (Auto) 5.5 % 02/25/22 05:20 Eos % (Auto) 0.1 % 02/25/22 05:20 Baso % (Auto) 0.2 % 02/25/22 05:20 Neut # (Auto) 14.24 10^3/uL (1.8-7.7) H 02/25/22 05:20 Lymph # (Auto) 1.7 10^3/uL (0.8-4.8) 02/25/22 05:20 [place] # (Auto) 0.9 10^3/uL (0.2-0.9) 02/25/22 05:20 Eos # (Auto) 0.0 10^3/uL (0.0-0.8) 02/25/22 05:20 Baso # (Auto) 0.0 10^3/uL (0.0-0.1) 02/25/22 05:20 Nucleated RBC % (auto) 0 % 02/25/22 05:20 Nucleated RBCs # 0.0 /100WBC 02/25/22 05:20 Sodium 139 mmol/L (136-145) 02/25/22 05:20 Potassium 3.8 mmol/L (3.5-5.1) 02/25/22 05:20 Chloride 105 mmol/L (98-107) 02/25/22 05:20 Carbon Dioxide 23 mmol/L (22-29) 02/25/22 05:20 Anion Gap 14.8 (5-19) 02/25/22 05:20 BUN 11 mg/dL (6-20) 02/25/22 05:20 Creatinine 0.7 mg/dL (0.7-1.2) 02/25/22 05:20 GFR Calculation 117.1 mL/min (90-130) 02/25/22 05:20 Glucose 105 mg/dL (65-115) 02/25/22 05:20 Estimat Average Glucose 120 02/25/22 05:20 Hemoglobin A1c 5.8 % (4.0-6.0) 02/25/22 05:20 Calculated Osmolality 288 mOsm/kg (285-295) 02/25/22 05:20 Calcium 8.3 mg/dL (8.5-10.5) L 02/25/22 05:20 Iron 70 ug/dL (59-158) 02/24/22 21:08 TIBC 302 mcg/dl 02/24/22 21:08 % Saturation 23.1 % (20-50) 02/24/22 21:08 Unsat Iron Binding 232 ug/dL (112-347) 02/24/22 21:08 Total Bilirubin 0.5 mg/dL (0.15-1.2) 02/25/22 05:20 AST 19 U/L (0-40) 02/25/22 05:20 ALT 21 U/L (0-41) 02/25/22 05:20 Alkaline Phosphatase 65 U/L (40-130) 02/25/22 05:20 Total Protein 6.0 g/dL (6.6-8.7) L 02/25/22 05:20 Albumin 3.9 g/dL (3.5-5.2) 02/25/22 05:20 Globulin 2.1 g/dL (1.3-4.6) 02/25/22 05:20 Triglycerides 241 mg/dL (0-150) H 02/25/22 05:20 Triglycerides Cancelled 02/25/22 05:20 Cholesterol 226 mg/dL (0-200) H 02/25/22 05:20 Cholesterol Cancelled 02/25/22 05:20 LDL Cholesterol, Calc 143 mg/dL (50-129) H 02/25/22 05:20 LDL Cholesterol, Calc Cancelled 02/25/22 05:20 Total VLDL Cholesterol 48 mg/dL (0-30) H 02/25/22 05:20 Total VLDL Cholesterol Cancelled 02/25/22 05:20 HDL Cholesterol 35 mg/dL (60-100) L 02/25/22 05:20 HDL Cholesterol Cancelled 02/25/22 05:20 Cholesterol/HDL Ratio 6.46 mg/dL (1.0-5.00) H 02/25/22 05:20 Cholesterol/HDL Ratio Cancelled 02/25/22 05:20 Vitamin B12 842 pg/mL (232-1245) 02/24/22 21:08 Folate > 20.0 ng/mL (4.5-32.2) 02/24/22 21:08 TSH 0.35 uIU/mL (0.27-4.20) 02/24/22 21:08 Urine Color Yellow (Yellow) 02/24/22 21:20 Urine Appearance Clear (CLEAR) 02/24/22 21:20 Urine pH 7 (5-7) 02/24/22 21:20 Ur Specific [place] 1.015 (1.005-1.030) 02/24/22 21:20 Urine Protein Neg (Negative) 02/24/22 21:20 Urine Glucose (UA) 4+ (Normal) H 02/24/22 21:20 Urine Ketones Negative (Negative) 02/24/22 21:20 Urine Blood 2+ (Negative) H 02/24/22 21:20 Urine Nitrate Negative (Negative) 02/24/22 21:20 Urine Bilirubin Neg (Negative) 02/24/22 21:20 Urine Urobilinogen Norm mg/dL (Negative) 02/24/22 21:20 Ur Leukocyte Esterase Negative (Negative) 02/24/22 21:20 Urine RBC 80-100 /hpf (0-2) H 02/24/22 21:20 Urine WBC 0-4 /hpf (0-5) H 02/24/22 21:20 Ur Squamous Epith Cells None /hpf (0-5) 02/24/22 21:20 Amorphous Sediment Not Reportable 02/24/22 21:20 Urine Bacteria None /hpf (NONE) 02/24/22 21:20 Hyaline Casts 0-4 /lpf H 02/24/22 21:20 Blood Type O Positive 02/24/22 10:28 Rho(D) Type Positive 02/24/22 10:28 Antibody Screen Negative 02/24/22 10:28 Imaging Xray Ortho: Radiologist's impression: IMPRESSION: Status post left total knee replacement. No evidence of complication. Procedures Performed Left total knee arthroplasty Vitals Last Vital Signs Temp 98.3 F 02/25/22 11:06 Pulse 88 02/25/22 11:06 Resp 16 02/25/22 11:06 BP 151/69 02/25/22 11:06 Pulse Ox 94 02/25/22 11:06 O2 Del Method 02/25/22 11:06 Discharge Plan Discharge Patient Disposition: Home Condition: Stable Prescriptions: New atorvastatin 40 mg Tablet 40 mg PO BEDTIME 30 Days Qty: 30 0RF amlodipine 5 mg tablet 5 mg PO DAILY Qty: 30 0RF Colace 100 mg capsule 100 mg PO DAILY PRN (Reason: constipation) 10 Days Qty: 10 0RF ondansetron 4 mg tablet,disintegrating 4 mg PO DAILY 5 Days Qty: 5 0RF oxycodone 5 mg tablet 5 mg PO Q6H PRN (Reason: pain) 7 Days Qty: 28 0RF Tylenol Extra Strength 500 mg tablet 500 mg PO Q6H PRN (Reason: postop pain) 7 Days Qty: 28 0RF Eliquis 2.5 mg tablet 2.5 mg PO BID 14 Days Qty: 28 0RF Continued Glucosamine Complex-MSM Capsule 1 cap PO BID Maximino Mag Zinc Plus D3 333 mg-133 unit -133 mg-5 mg Tablet 1 tab PO TID Rx Instructions: pts state the pt hasnt taken for a few days albuterol sulfate [Ventolin HFA] 90 mcg/actuation HFA aerosol inhaler 2 puff INHALATION PRN PRN (Reason: Shortness Of Breath) Discontinued ibuprofen 200 mg Tablet 600 mg PO PRN Discharge Orders: Discharge Order (Routine); Ordered 02/25/22 Ordered By: Edgar Arana Other Ambulatory Orders: DME: Walker (Order) Location: None Selected Ordered By: Edgar Arana Physical Therapy Eval and Treat Outpatient (Order) Timeframe: 3 Weeks Facility: [facility] - Location: Physical Therapy Ordered By: Kenna Sampson Referrals: Edgar Arana DO [Physician] - 03/15/22 1:15 pm Mike Hudson MD [Primary Care Provider] - 03/11/22 9:20 am Discharge Diet: Advance as tolerated Discharge Activity: Increase activity as tolerated Patient Instructions: Acetaminophen (By mouth), Laxative, Stool Softeners (By mouth), Oxycodone, Rapid Release (By mouth), Amlodipine (By mouth), Ondansetron (By mouth), Atorvastatin (By mouth), Apixaban (By mouth), Hypertension, Low Fat Diet (GEN), How to Take a Blood Pressure Reading (GEN), How to Choose and Use a Walker (GEN), Precautions after Total Joint Replacement Surgery (GEN), Revision Total Joint Arthroplasty (GEN), Opioid Safety, Post Operative Pain Activity Restrictions/Additional Instructions: Orthopedic discharge instructions: Patient may take dressing down after 2-3 days postoperatively. May remove dressing and shower. Pat incision dry and redress with a dry dressing. No baths or soaks Encourage range of motion to the left knee is much as tolerated Weight-bear as tolerated left lower extremity Take pain medication as prescribed Take antinausea medication as needed Take Eliquis (blood thinner) as prescribed for blood clot prevention Supplement with Colace for any constipation Follow-up with Dr. Arana in the office in 2 weeks Contact the office for any questions or concerns To new medications have been added to your medication list. Amlodipine 5 mg daily is a blood pressure medication. Please check your blood pressure daily and maintain a blood pressure diary and follow-up with a primary care provider within next 2 to 3 weeks for further adjustment of antihypertensive. Atorvastatin 40 mg was also added to her medication list. Please recheck lipid panel with a primary care provider in 6 months. These follow-up with a primary care provider within next 2 to 3 weeks. Discharge Attestations Time Spent in Discharge Care*: greater than 30 min Status at Discharge: Cognitive status at discharge: cognitively intact , Behavioral status at discharge: cooperative , Quality Metrics Clinical Quality Measures [ No reported AMI, CVA or VTE this stay] Coding Level of Care Code Acute [facility] FW BING note Diagnoses Encounter for postoperative care Z48.89 Left knee DJD M17.12 Time Spent (min) 40
== END 2022-02-25 14:09 | disposition home or self-care (01) ==
LOC: OBGYN 16:40
PROVIDERS: Student in an Organized Health Care Education/Training Program; Admitting Provider Student in an Organized Health Care Education/Training Program; PCP Family Medicine; Visit Provider Student in an Organized Health Care Education/Training Program
PROC: 8E0Y0CZ Robotic Assisted Procedure of Lower Extremity, Open Approach (ICD-10-PCS; CPT 27447; principal; 2022-02-24 11:45)
DX: M17.12 Unilateral primary osteoarthritis, left knee (principal); Z87.891 Personal history of nicotine dependence
CPT/HCPCS: 27447; 36415; 51702; 73560; 80053; 80061; 81001; 82607; 82746; 83036; 83540; 83550; 84443; 85025; 86850; 86900; 87641; 97110; 97116; 97161; 97165; 97530; C1776; G0378; J0131; J0171; J0690; J1100; J1885; J2250; J2370; J2704; J2795; J3490; J7030; J7120

== ENCOUNTER 2022-03-01 12:09 | Outpatient (RCR) | payer BC, SELFPAY | END 2022-03-16 23:59 | disposition home or self-care (01) | LOC: SPT 12:09 | PROVIDERS: PCP Family Medicine; Visit Provider Student in an Organized Health Care Education/Training Program | DX: Z47.1 Aftercare following joint replacement surgery (principal); Z96.652 Presence of left artificial knee joint | CPT/HCPCS: 97110; 97161 ==

== ENCOUNTER → 2022-03-15 11:33 | Outpatient (BNVA) | payer BC, SELFPAY | PROVIDERS: PCP Family Medicine; Visit Provider Student in an Organized Health Care Education/Training Program | DX: Z96.652 Presence of left artificial knee joint (principal); M17.12 Unilateral primary osteoarthritis, left knee | CPT/HCPCS: 73560; 73565 ==

== ENCOUNTER 2022-03-17 06:00 | Outpatient (RCR) | payer BC, SELFPAY | END 2022-04-13 23:59 | disposition home or self-care (01) | LOC: SPT 06:00 | PROVIDERS: PCP Family Medicine; Visit Provider Student in an Organized Health Care Education/Training Program | DX: Z47.1 Aftercare following joint replacement surgery (principal); Z96.652 Presence of left artificial knee joint | CPT/HCPCS: 97110 ==

== ENCOUNTER 2022-04-14 06:00 | Outpatient (RCR) | payer BC, SELFPAY | END 2022-05-14 23:59 | disposition home or self-care (01) | LOC: SPT 06:00 | PROVIDERS: PCP Family Medicine; Visit Provider Student in an Organized Health Care Education/Training Program | DX: Z47.1 Aftercare following joint replacement surgery (principal); Z96.652 Presence of left artificial knee joint | CPT/HCPCS: 97110 ==

== ENCOUNTER 2022-05-15 06:00 | Outpatient (RCR) | payer BC, SELFPAY | END 2022-05-31 23:59 | disposition home or self-care (01) | LOC: SPT 06:00 | PROVIDERS: PCP Family Medicine; Visit Provider Student in an Organized Health Care Education/Training Program | DX: Z47.1 Aftercare following joint replacement surgery (principal); Z96.652 Presence of left artificial knee joint | CPT/HCPCS: 97110 ==

== ENCOUNTER → 2022-08-12 14:35 | Outpatient (BNVA) | payer BC, SELFPAY | PROVIDERS: PCP Family Medicine; Referring Provider Family Medicine; Visit Provider Student in an Organized Health Care Education/Training Program | DX: M67.442 Ganglion, left hand (principal) | CPT/HCPCS: 73130 ==

== ENCOUNTER 2022-10-04 08:00 | Day surgery (SDC) | payer BC, SELFPAY ==
[2022-10-01 11:50] VITALS: BMI 38.7
[2022-10-04 08:13] VITALS: BP 174/108; PULSE 82; RESP 18; TEMP 36.6; O2SAT 98
[2022-10-04] MEDS: ketorolac 30 mg/mL INJ IVP (08:18)
[2022-10-04] MEDS: sodium chloride 0.9% 1,000 ML 30 ML IV (08:18)
[2022-10-04] MEDS: acetaminophen 1,000 MG/100 ML PIGGYBACK 400 MG IV (08:18)
--- NOTE | 2022-10-04 08:53 | W.PM.OPSUD ---
Surgery/Procedure H&P Update DATE OF PROCEDURE: October 04, 2022 DATE H&P PERFORMED: 08/12/22 CHANGES TO PREVIOUS DOCUMENTATION: None. No changes in HPI from office visit 08/12/2022. Patient has left index finger retinacular cyst this does appear to be associated with the A1 kelli we talked about treatment for this and ultimately through shared decision-making elects proceed with left index finger cyst excision as well as trigger finger release. All questions answered at this time. PREOP DIAGNOSIS: left index finger retinacular cyst PRIMARY INDICATION FOR PROCEDURE: Left index finger retinacular cyst PLANNED PROCEDURE: Operation Date: 10/04/22 09:25 Proposed Procedures p Left index finger cyst excision [id number], M67.40 ,M79.643(Left) - Edgar Arana DO
--- NOTE | 2022-10-04 08:56 | W.PM.OPSFHP ---
Same Day Surgery H&P Indication for Procedure/HPI DATE OF PROCEDURE: October 04, 2022 CHIEF COMPLAINT/INDICATIONFOR SURGICAL PROCEDURE: Right hand cyst patient states that the mass has been present since June 2022. He states that the mass does fluctuate in size. He is unsure of any trauma. He states that he does have significant pain with gripping and grasping. No numbness or tingling reported. PREOP DIAGNOSIS: left index finger retinacular cyst PLANNED PROCEDURE: Operation Date: 10/04/22 09:25 Proposed Procedures p Left index finger cyst excision 55968, M67.40 ,M79.643(Left) - Edgar Arana DO Medications/Allergies* Home Medications Medication Instructions Recorded Confirmed Type albuterol sulfate 90 mcg/actuation 2 puff inhalation PRN PRN 10/17/19 10/01/22 History aerosol inhaler (Ventolin HFA) Shortness Of Breath calcium carb 333 mg-vit D3 133 1 tab PO TID 10/17/19 10/04/22 History unit-mag ox 133 mg-zinc oxide 5 mg tab (Maximino Mag Zinc Plus D3) [id number]-[id number]-vitC 1 cap PO BID 10/17/19 10/04/22 History capsule (Glucosamine Complex-MSM capsule) ibuprofen 200 mg capsule 200 mg PO Q6H PRN Pain 03/15/22 10/04/22 History omega-3 fatty acids-fish oil 684 1 cap PO DAILY 10/01/22 10/04/22 History mg-1,200 mg capsule,delayed release Allergies/Adverse Reactions Allergy/AdvReac Type Severity Reaction Status Date / Time aluminum Allergy Mild rash Verified 10/01/22 11:47 Current Medications: Generic Name Dose Route Start Last Admin Trade Name Freq PRN Reason Stop Dose Admin Sodium Chloride 1,000 mls @ 30 mls/hr 10/04/22 08:15 10/04/22 08:18 Sodium Chloride 0.9% IV 10/05/22 08:14 30 mls/hr .Q24H MARTINEZ Administration Pertinent History/Comorbid Conditions* Medical History (Updated 07/20/22 @ 07:09 by Mike Hudson MD) ARDS (adult respiratory distress syndrome) Former smoker IBS (irritable bowel syndrome) Left knee DJD Pneumonia due to COVID-19 virus Varicose vein of leg Surgical History (Updated 02/25/22 @ 12:44 by Edgar Arana DO) History of appendectomy Status post total left knee replacement Family History (Updated 10/17/19 @ 15:41 by Devendra Brownlee MD) Denies family history of Diabetes CAD (coronary artery disease) Hyperlipidemia Chronic kidney disease (CKD) Family history of premature coronary artery disease Lung disease Hypertension Social History Smoking and tobacco status: former smoker Alcohol intake: never Substance/Drug Use: never Household members: family Housing: House Pertinent Exam Findings alert, oriented x 3, operative site marked and procedure specific exam findings Examination of the left hand demonstrates patient is able to make a fist.? Patient has a palpable retinacular cyst on the volar aspect of the left index finger at the base of the finger over the MP joint/A1 kelli patient does have A1 kelli tenderness.? No mechanical triggering noted.? Patient sensations intact to light touch.? Negative Tinel's at the mass.? Cyst is palpable mobile and soft.? Fingertips warm well perfused. Recommendations Surgery/Procedure today Other Plans: Patient has a cyst of the left hand at the left index finger consistent with a retinacular cyst. Patient this point time would like to have this removed he understands risk benefits complication alternatives with surgery and through shared decision-making patient elects proceed with surgical intervention. All questions answered at this time. Patient elects proceed with left index finger cyst excision and trigger release given the close proximity in order to hopefully prevent any recurrence. All questions answered Coding Level of Care Code Acute Code for Chg Fwd Diagnoses
[2022-10-04] MEDS: ceFAZolin 2,000 MG in sodium chloride 0.9% (plus) 50 ML 100 MG IV (08:57)
[2022-10-04] MEDS: BUPivacaine 0.5% INJ 10 mL INJECTION (09:15)
[2022-10-04 09:51] VITALS: BP 108/75; PULSE 81; RESP 16; TEMP 36.4; O2SAT 93
--- NOTE | 2022-10-04 09:52 | PM.OP2 ---
Brief Operative Note Date of procedure: 10/04/22 Pre-op diagnosis: Left index finger retinacular cyst Post-op diagnosis: other (Left index finger retinacular cyst and left index trigger finger) Procedure Done: Left index finger cyst excision with left index finger trigger release. Cyst was sent to pathology for testing Surgeon: Edgar Arana Estimated blood loss (mL): 5 Complications: none Post-op Plan: Orthopedic discharge instructions: Keep dressing clean dry and intact Leave on for 72 hours after surgery, after that may remove dressings clean incision with warm soapy water, pat dry and redress with a dry dressing. No baths or soaks Weightbearing as tolerated to the operative hand Encourage hand and finger range of motion as tolerated Ice and elevate as needed for pain and swelling Take pain medication as prescribed Take antinausea medication as needed Follow-up with Dr. Arana in the office in 2 weeks Contact the office for any questions or concerns Condition: stable Disposition: PACU Coding Level of Care Code Acute Code for Tonya Carias
[2022-10-04 09:56] VITALS: BP 129/90; PULSE 78; RESP 16; O2SAT 96
--- NOTE | 2022-10-04 09:56 | PM.PACU ---
PACU note Narrative: Patient is a 57-year-old male who just underwent a left index finger cyst excision and left index finger trigger release. Patient transferred to PACU in stable condition. Pain is well controlled. Dressing on hand is dry and in place. Patient has good perfusion to fingers and is able to move fingers. Normal cap refill under 2 seconds. Patient has normal elbow range of motion. Unable to assess sensation due to localized anesthetic. Exam: awake Disposition: discharged
[2022-10-04 10:01] VITALS: BP 114/83; PULSE 81; RESP 17; O2SAT 95
[2022-10-04 10:06] VITALS: BP 113/87; PULSE 80; RESP 16; TEMP 36.5; O2SAT 95
--- NOTE | 2022-10-04 10:13 | ANES.PREANE2 ---
Pre-Anesthetic Assessment Height/Weight: Height 1.8 m Weight 122.47 kg Temp Pulse Resp BP Pulse Ox O2 Del Method O2 Flow Rate 97.7 F 80 16 113/87 95 Room Air 6 10/04/22 10:06 10/04/22 10:06 10/04/22 10:06 10/04/22 10:06 10/04/22 10:06 10/04/22 10:06 10/04/22 09:51 Preop Diagnosis: left index finger retinacular cyst Operation Date: 10/04/22 09:25 Proposed Procedures p Left index finger cyst excision [id number], M67.40 ,M79.643(Left) - Edgar Corson, Familial anesthetic complications: none Was Beta Shakira taken within 24 hours: N/A Was Clonidine taken within 24 hours: N/A Last intake: Intake Last Liquid Date 10/03/22 Last Liquid Time 22:30 Last Solid Date 10/03/22 Last Solid Time 22:30 Social No alcohol and No tobacco Exam alert, oriented x 3, clear to auscultation bilaterally and regular rate & rhythm Airway Submandibular: within normal limits Cervical ROM: within normal limits Mallampati: Class II Dentition: full Pulmonary Asthma CV/HEM Hypertension Metabolic Hyperlipidemia and Morbid Obesity Anesthetic Plan ASA status: 2 Anesthesia: MAC Medications/Allergies Home Medications Medication Instructions Recorded Confirmed Last Taken Type albuterol sulfate 90 mcg/actuation 2 puff inhalation PRN PRN 10/17/19 10/01/22 2 Months Ago History aerosol inhaler (Ventolin HFA) Shortness Of Breath ~12/25/21 calcium carb 333 mg-vit D3 133 1 tab PO TID 10/17/19 10/04/22 10/03/22 History unit-mag ox 133 mg-zinc oxide 5 mg tab (Maximino Mag Zinc Plus D3) [id number]-whc-amqybgrvk-vitC 1 cap PO BID 10/17/19 10/04/22 10/03/22 History capsule (Glucosamine Complex-MSM capsule) ibuprofen 200 mg capsule 200 mg PO Q6H PRN Pain 03/15/22 10/04/22 10/03/22 History omega-3 fatty acids-fish oil 684 1 cap PO DAILY 10/01/22 10/04/22 10/03/22 History mg-1,200 mg capsule,delayed release ondansetron 4 mg disintegrating 4 mg PO Q8H PRN nausea and 10/04/22 Unknown Rx tablet vomiting 3 days #9 tabs tramadol 50 mg tablet 50 mg PO Q6H PRN pain #20 tabs 10/04/22 Unknown Rx Allergies Allergy/AdvReac Type Severity Reaction Status Date / Time aluminum Allergy Mild rash Verified 10/01/22 11:47 Current Medications Generic Name Dose Route Start Last Admin Trade Name Freq PRN Reason Stop Dose Admin Sodium Chloride 1,000 mls @ 30 mls/hr 10/04/22 08:15 10/04/22 08:18 Sodium Chloride 0.9% IV 10/05/22 08:14 30 mls/hr .Q24H MARTINEZ Administration PFSH Anesthesia Medical History ARDS (adult respiratory distress syndrome) Former smoker IBS (irritable bowel syndrome) Left knee DJD Pneumonia due to COVID-19 virus Varicose vein of leg Surgical History History of appendectomy Status post total left knee replacement Family History Denies family history of Diabetes CAD (coronary artery disease) Hyperlipidemia Chronic kidney disease (CKD) Family history of premature coronary artery disease Lung disease Hypertension Social History Smoking and tobacco status: former smoker Alcohol intake: never Substance/Drug Use: never Household members: family Housing: House Data Anesthesia Cardiac Studies: No Data to Display
--- NOTE | 2022-10-04 10:21 | P.OP_ITS ---
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 Procedure: Post-op diagnosis: Same, with communication to index finger flexor tendon sheath Procedure done: Left Index finger retinacular cyst excision Left Index finger?trigger?release Surgeon: Edgar Arana DO Estimated blood loss: 4cc Tourniquet time 17mins Complications: None Condition: stable Disposition: same day Brief History: Patient's been seen and worked up in the outpatient setting and findings consistent with preoperative diagnosis of left index finger retinacular cyst.? He is failed conservative treatment.? Patient continues to have pain and irritation with this is continuing to vary in size. He does have pain over his A1 kelli as well..? We talked about treatment options nonoperative versus operative intervention.? ?Patient understands the risk benefits complication alternatives of surgical nonsurgical treatment options.? Understanding his risks with surgery he elects proceed with surgical intervention.? Consent obtained in the office.? Here today to proceed with surgical intervention.? All questions answered. We will proceed with left index finger retinacular cyst excision and likely left index finger trigger release Procedure: Patient was seen and evaluated in the preoperative holding area.? Consent was reviewed and signed with patient.? Seen evaluated by Anesthesia Department.? Once cleared for surgery was brought back to the operative suite.? Placed in supine position on the OR table all bony prominences well-padded patient properly secured to the bed.? Patient's left arm was then placed to the armboard.? A nonsterile tourniquet applied to the left upper arm.? Patient's left upper extremity was then prepped and draped in standard orthopedic fashion.? Final timeout performed.? Patient received appropriate preoperative antibiotics. Esmarch tourniquet was used exsanguinate the left upper extremity tourniquet insufflated to 250 mmHg. Under sterile aseptic technique local digital block was performed to the left index finger.? Once appropriately anesthetized a standard oblique Nolan excision extending over the A1 kelli to the radial crease of MP joint and made a Nolan incision obliquely to the ulnar corner at the PIP joint in order to create a full-thickness flap. Sharp scalpel incision was made only through skin and then switched to Littler dissection scissors and spread longitudinally directly over the flexor tendon sheath.? I then mobilized both radially and ulnarly and Kasdan retractors were used and placed by my graduate assistant athletic trainer to protect neurovascular bundles.? At this point in time through longitudinal spreading identified the cyst which was roughly a centimeter in size and tracked onto the second webspace just adjacent to the ulnar digital bundle to the index finger. I protected the digital bundle and then dissected around the cyst mobilized in all planes down to the stalk which communicated to the A1 kelli flexor tendon sheath. I then truncated the stalk of the cyst at its base off the A1 kelli flexor tendon sheath this was then removed and sent for pathology. next I visualized the A1 kelli and this was incised with a scalpel.? I then switched to dissection scissors and released the A1 kelli both proximally as well as distally to its entirety.? Significant tendon sheath fluid was noted consistent with inflammation. Flexor tendons were healthy no evidence of tear.? At this point I utilized a rag nail and pulled the tendons FDS and FDP out of the incision and no?triggering was noted.? This point thorough irrigation was performed.? Tourniquet deflated hemostasis satisfactory with bipolar.? I then subsequently closed the incision with interrupted nylon suture.? Xeroform 4 x 4's, Kerlix and an Phil wrap was applied for a bulky soft dressing.? Patient was then subsequently awakened from anesthesia and taken to PACU in stable condition tolerated procedure without issues. Disposition: Patient taken back in stable condition recovering well.? Patient wi ll receive appropriate discharge instruction as well as pain medication postoperatively.? Patient to follow-up with me in the office in 2 weeks for repeat evaluation and incision check.? Patient understands that any questions or concerns and contact the office.? All questions answered.
[2022-10-04] MEDS: TRAMadol 50 mg Tablet PO (10:26)
--- NOTE | 2022-10-04 17:00 | ANE.PACU2 ---
Inpatient post-anesthesia follow up: Airway intact: Yes Vital signs: Temperature 97.7 F Pulse Rate 80 Respiratory Rate 16 Blood Pressure 113/87 Pulse Oximetry 95 Oxygen Delivery Me thod Room Air Oxygen Flow Rate 6 Fraction of Inspir ed Oxygen Hydration adequate: Yes Nausea and vomiting: No Pain level: 1 Mental status: Baseline
== END 2022-10-04 10:51 | disposition home or self-care (01) ==
PROVIDERS: PCP Family Medicine; Visit Provider Student in an Organized Health Care Education/Training Program
PROC: (CPT 26055; principal; 2022-10-04 09:25)
PROC: (CPT 26055; 2022-10-04 09:25)
DX: M67.442 Ganglion, left hand (principal); M65.322 Trigger finger, left index finger; I10 Essential (primary) hypertension; E78.5 Hyperlipidemia, unspecified; E66.01 Morbid (severe) obesity due to excess calories; Z68.37 Body mass index [BMI] 37.0-37.9, adult; Z87.891 Personal history of nicotine dependence
CPT/HCPCS: 26055; 26160; 88304; J0131; J0690; J1885; J2704; J3010; J3490; J7030

== ENCOUNTER → 2023-02-24 09:01 | Outpatient (BNVA) | payer BC, SELFPAY | PROVIDERS: PCP Family Medicine; Visit Provider Physician Assistant | DX: Z96.652 Presence of left artificial knee joint (principal) | CPT/HCPCS: 73560; 73565 ==

== ENCOUNTER → 2024-06-05 12:17 | Outpatient (BNVA) | payer BC, SELFPAY | PROVIDERS: PCP Family Medicine; Visit Provider Family Medicine | DX: Z00.00 Encounter for general adult medical examination without abnormal findings (principal); I10 Essential (primary) hypertension | CPT/HCPCS: 80053; 80061; 85025 ==